=== PATIENT | male | born 1955 | race Caucasian/White ===

== ENCOUNTER → 2016-07-25 | Outpatient (CLI) | payer OTHER | LOC: MW.CHUR 13:11 | PROVIDERS: ATTEND Urology | DX: N50.819 Testicular pain, unspecified (principal) | CPT/HCPCS: 36415; 81001; 84153 ==

== ENCOUNTER 2016-08-06 06:18 | Day surgery (SDC) | payer OTHER ==
[~2016-08-06 06:18] MED LIST: Lactated Ringers 1,000 ML IV SCH; ceFAZolin 1 GM in Premix Bag 1 BAG IV ONE
[2016-08-06] MEDS ORDERED: Bupivacaine 0.5% 10 ML SDV ONE (07:07)
--- NOTE | 2016-08-06 07:21 | PCM.PREANE ---
Preanesthetic Assessment - Anesthesia/Transfusion/Family Hx Anesthesia History: Prior Anesthesia Without Reaction (sedation for endoscopy, no other surgeries or anesthetics) Other Type of Anesthesia Reaction Comment: states has only had EGD/colonoscopy in the past Family History of Anesthesia Reaction: No Transfusion History: No Prior Transfusion(s) - Review of Systems General: No Symptoms Pulmonary: No Symptoms Cardiovascular: No Symptoms Gastrointestinal: No symptoms Neurological: No Symptoms Other: Reports: None - Physical Assessment NPO Status Date: 08/05/16 NPO Status Time: 23:00 O2 Sat by Pulse Oximetry: 96 Respiratory Rate: 16 Vital Signs: Last Vital Signs Temp 37.1 C 08/06/16 06:35 Pulse 72 08/06/16 06:35 Resp 16 08/06/16 06:35 BP 142/86 H 08/06/16 06:35 Pulse Ox 96 08/06/16 06:35 Height: 1.75 m Weight: 89.811 kg ASA Class: 2 Mental Status: Alert & Oriented x3 Airway Class: Mallampati = 2 Dentition: Reports: Edentulous ROM/Head Extension: Full Lungs: Clear to auscultation, Normal respiratory effort Cardiovascular: Murmurs (2-3/6 systolic murmur without radiation) - Allergies Allergies/Adverse Reactions: Allergies Allergy/AdvReac Type Severity Reaction Status Date / Time No Known Allergies Allergy Verified 08/01/16 08:02 - Anesthesia Plan Pre-Op Medication Ordered: None - Acknowledgements Anesthesia Type Planned: General Anesthesia Pt an Appropriate Candidate for the Planned Anesthesia: Yes Alternatives and Risks of Anesthesia Discussed w Pt/Guardian: Yes Pt/Guardian Understands and Agrees with Anesthesia Plan: Yes Additional Comments: problem list, htn, systolic murmur, walks 2-3 miles/day and rides bike 5 miles/ day without angina or dyspnea. PreAnesthesia Questionnaire Cardiovascular History: Reports: Heart Murmur, Hypertension Musculoskeletal History: Reports: Fracture - Past Surgical History Head Surgeries/Procedures: Reports: None Other Cardiovascular Surgeries/Procedures: states has had angiogram in the past - SUBSTANCE USE Smoking Status *Q: Current Every Day Smoker Tobacco Use Within Last Twelve Months: Cigarettes Days Per Week of Alcohol Use: 1 Recreational Drug Use History: No - HOME MEDS Home Medications: Home Meds amLODIPine Besylate [Amlodipine Besylate] 10 mg PO PCLUNCH 08/01/16 [History] - CURRENT (IN HOUSE) MEDS Current Meds: Current Medications Lactated Ringer's (Ringers, Lactated) 1,000 mls @ 100 mls/hr IV ASD[facility]RECTED [facility] Last Admin: 08/06/16 07:13 Dose: 100 mls/hr Discontinued Medications Bupivacaine HCl (Sensorcaine-Mpf 0.5%) Confirm Administered Dose 20 ml .ROUTE .STK-MED ONE Stop: 08/06/16 07:08 Cefazolin Sodium/Dextrose 1 gm (/ Premix) 50 mls @ 100 mls/hr IV ONCALL ONE Stop: 08/06/16 00:30
[2016-08-06] MEDS ORDERED: Propofol 200 MG/20 ML SDV ONE (07:25)
[2016-08-06] MEDS ORDERED: Lidocaine 2% 5 ML SDV ONE (07:25)
[2016-08-06] MEDS ORDERED: fentaNYL 100 MCG/2 ML SDV ONE ×2 (07:25→07:26)
[2016-08-06] MEDS ORDERED: Midazolam 1 MG/ML 2 ML SDV ONE (07:25)
[2016-08-06] MEDS ORDERED: ePHEDrine 50 MG/ML SDV ONE (08:20)
[2016-08-06] MEDS ORDERED: fentaNYL 100 MCG/2 ML SDV IVPUSH PRN (08:28)
[2016-08-06] MEDS ORDERED: Acetaminophen/HYDROcodone 325-5 MG Tab PO PRN (09:58)
--- NOTE | 2016-08-06 09:58 | PCM.POSTAN ---
POST ANESTHESIA ASSESSMENT - MENTAL STATUS Mental Status: alert, oriented - RESPIRATORY Respiratory Status: respiratory rate WNL, airway patent, O2 saturation stable - CARDIOVASCULAR CV Status: pulse rate WNL, blood pressure stable - GASTROINTESTINAL GI Status: no symptoms - POST OP HYDRATION Hydration Status: adequate & stable
--- NOTE | 2016-08-06 11:25 | PCM48HPAN ---
Post Anesthesia Note - EVALUATION WITHIN 48HRS OF ANESTHETIC Vital Signs in Normal Range: Yes Patient Participated in Evaluation: Yes Respiratory Function Stable: Yes Airway Patent: Yes Cardiovascular Function Stable: Yes Hydration Status Stable: Yes Pain Control Satisfactory: Yes Nausea and Vomiting Control Satisfactory: Yes Mental Status Recovered: Yes
--- NOTE | 2016-08-06 12:07 | OR ---
SURGEON: Johnny Stoll M.D. DATE OF PROCEDURE: 08/06/2016 PREOPERATIVE DIAGNOSIS: Right intratesticular cyst. POSTOPERATIVE DIAGNOSIS: Right intratesticular cyst. OPERATION: Testicular exploration and removal of testicular cyst. DESCRIPTION OF PROCEDURE: The patient was given general anesthesia, placed in supine position. The lower abdomen and genital area were all prepped and draped in sterile drapes. A transverse incision was made in the right scrotal sac. The testicle was delivered to the outside. A scarred area from the medial aspect of the testicle was identified. The testicle was then bivalved, the cyst was identified and removed. The appendix testis was also fulgurated as well. The testicular coverings were closed with a running suture of 3-0 chromic. The rest of the incision was closed using 3-0 chromic. The patient tolerated the procedure well and was moved to recovery room in good condition. GENNY / FELICITAS /[id number]
[2016-08-06 13:31] VITALS: BP 123/72
== END 2016-08-06 11:45 | disposition home or self-care (01) ==
LOC: MW.SDS 06:18
PROVIDERS: ATTEND Urology
DX: N44.2 Benign cyst of testis (principal); I10 Essential (primary) hypertension; F17.210 Nicotine dependence, cigarettes, uncomplicated; Z79.899 Other long term (current) drug therapy
CPT/HCPCS: 54512; 88307; A9270; J2250; J3010; J7120; 00920; J2704

== ENCOUNTER 2019-02-01 08:52 | Day surgery (SDC) | payer OTHER ==
[2019-02-01 09:20] VITALS: BP 157/88; PULSE 82
--- NOTE | 2019-02-01 09:44 | PCM.PREANE ---
Preanesthetic Assessment - Anesthesia/Transfusion/Family Hx Anesthesia History: Prior Anesthesia Without Reaction Other Type of Anesthesia Reaction Comment: states has only had EGD/colonoscopy in the past Family History of Anesthesia Reaction: No Transfusion History: No Prior Transfusion(s) Intubation History: Unknown - Review of Systems General: No Symptoms Pulmonary: No Symptoms Cardiovascular: No Symptoms Gastrointestinal: No Symptoms Neurological: No Symptoms Other: Reports: None - Physical Assessment Vital Signs: Last Vital Signs Temp 36.8 C 02/01/19 09:18 Pulse 82 02/01/19 09:18 Resp 14 02/01/19 09:18 BP 157/88 H 02/01/19 09:18 Pulse Ox 95 02/01/19 09:18 Height: 5 ft 9 in Weight: 87.09 kg ASA Class: 2 Mental Status: Alert & Oriented x3 Airway Class: Mallampati = 2 Dentition: Reports: Edentulous Thyro-Mental Finger Breadths: 3 Mouth Opening Finger Breadths: 3 ROM/Head Extension: Full Lungs: Clear to Auscultation, Normal Respiratory Effort Cardiovascular: Regular Rate, Regular Rhythm - Allergies Allergies/Adverse Reactions: Allergies Allergy/AdvReac Type Severity Reaction Status Date / Time No Known Allergies Allergy Verified 02/01/19 09:25 - Blood Blood Available: No - Anesthesia Plan Pre-Op Medication Ordered: None - Acknowledgements Anesthesia Type Planned: Spinal (general anesthesia back-up plan) Pt an Appropriate Candidate for the Planned Anesthesia: Yes Alternatives and Risks of Anesthesia Discussed w Pt/Guardian: Yes Pt/Guardian Understands and Agrees with Anesthesia Plan: Yes PreAnesthesia Questionnaire HEENT History: Reports: Other (See Below) Other HEENT History: wears glasses Cardiovascular History: Reports: Heart Murmur, Hypertension Respiratory History: Reports: None Gastrointestinal History: Reports: Hepatitis Other Gastrointestinal History: hx hepatitis C with treatment 3 years ago Genitourinary History: Reports: Other (See Below) Musculoskeletal History: Reports: Fracture, Osteoarthritis Other Musculoskeletal History: hx fx thumb Neurological History: Reports: None Psychiatric History: Reports: None Endocrine/Metabolic History: Reports: None Hematologic History: Reports: None Immunologic History: Reports: None Oncologic (Cancer) History: Reports: None Dermatologic History: Reports: None - Past Surgical History Head Surgeries/Procedures: Reports: None HEENT Surgical History: Reports: None Cardiovascular Surgical History: Reports: Other (See Below) Other Cardiovascular Surgeries/Procedures: states has had angiogram in the past ( ? 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 Endocrine Surgical History: Reports: None Neurological Surgical History: Reports: None Musculoskeletal Surgical History: Reports: None Oncologic Surgical History: Reports: None Dermatological Surgical History: Reports: None - SUBSTANCE USE Smoking Status *Q: Current Every Day Smoker (1/2 ppd) Tobacco Use Within Last Twelve Months: Cigarettes Recreational Drug Use History: No - HOME MEDS Home Medications: Home Meds amLODIPine Besylate [Amlodipine Besylate] 10 mg PO DAILY 08/01/16 [History] Fish Oil/[place]-3 Fatty Acids [Fish Oil 1,000 MG] 1,000 mg PO DAILY 01/27/19 [ History] Multivitamin [One Daily Multivitamin] 1 tab PO DAILY 01/27/19 [History]
[2019-02-01] MEDS ORDERED: fentaNYL 100 MCG/2 ML SDV ONE ×2 (10:26→10:59)
[2019-02-01] MEDS ORDERED: Ropivacaine 49.25 ML, Ketorolac 30 MG, EPINEPHrine 0.5 MG, cloNIDine 80 MCG in Sodium C... INJECT ONE (10:30)
[2019-02-01] MEDS ORDERED: Ondansetron 4 MG/2 ML SDV ONE (10:59)
[2019-02-01] MEDS ORDERED: Midazolam 1 MG/ML 2 ML SDV ONE (10:59)
--- NOTE | 2019-02-01 12:25 | PCM.SN ---
- Free Text/Narrative Note: Patient had moderate aortic stenosis on cardiac ECHO 12/26/17 with preserved EF and no wall motion abnormalities. Since this last study is over a year old patient will need another cardiac ECHO to rule out progression in aortic valve stenosis. If there is no progression of valve disease we think that risk from anesthesia is acceptable.
== END 2019-02-01 11:42 | disposition home or self-care (01) ==
LOC: UNDOADMIN 08:52 → MW.MS 08:52 → MW.SDS 08:52 → EDSTATUS 09:45 → UNDODISIN 11:42 → MW.SDS 11:42
PROVIDERS: ATTEND Orthopaedic Surgery
DX: M17.12 Unilateral primary osteoarthritis, left knee (principal); I10 Essential (primary) hypertension; M19.90 Unspecified osteoarthritis, unspecified site; F17.210 Nicotine dependence, cigarettes, uncomplicated; Z53.09 Procedure and treatment not carried out because of other contraindication; Z86.19 Personal history of other infectious and parasitic diseases; Z98.890 Other specified postprocedural states
CPT/HCPCS: J0171; J0735; J1885; J2795; J7030; J2001; J2250; J2405; J3010

== ENCOUNTER 2019-04-28 07:09 | Inpatient (IN) | payer OTHER ==
[~2019-04-28 07:09] MED LIST changes: +Famotidine 20 MG/2 ML SDV IVPUSH SCH; -Lactated Ringers 1,000 ML IV SCH; +Ropivacaine 49.25 ML, Ketorolac 30 MG, EPINEPHrine 0.5 MG, cloNIDine 80 MCG in Sodium C... INJECT SCH; -ceFAZolin 1 GM in Premix Bag 1 BAG IV ONE
[2019-04-28] MEDS ORDERED: Midazolam 1 MG/ML 2 ML SDV ONE ×2 (07:24→09:13)
[2019-04-28] MEDS ORDERED: fentaNYL 100 MCG/2 ML SDV ONE (07:24)
[2019-04-28] MEDS ORDERED: Propofol 200 MG/20 ML SDV ONE ×2 (07:24→09:15)
[2019-04-28] MEDS: Lactated Ringers 1,000 ML IV SCH ×2 (07:30→20:55)
[2019-04-28] MEDS ORDERED: Phenylephrine/Normal Saline 100 MCG/ML 10 ML Syringe ONE (07:31)
[2019-04-28] MEDS ORDERED: Sodium Chloride 0.9% 20 ML ONE (07:31)
[2019-04-28] MEDS ORDERED: ePHEDrine 50 MG/ML SDV ONE (07:31)
--- NOTE | 2019-04-28 07:38 | PCM.PREANE ---
Preanesthetic Assessment - Anesthesia/Transfusion/Family Hx Anesthesia History: Prior Anesthesia Without Reaction Other Type of Anesthesia Reaction Comment: states has only had EGD/colonoscopy in the past Family History of Anesthesia Reaction: No Transfusion History: No Prior Transfusion(s) Intubation History: Unknown - Review of Systems General: No Symptoms Pulmonary: No Symptoms Cardiovascular: No Symptoms Gastrointestinal: No Symptoms Neurological: No Symptoms Other: Reports: None - Physical Assessment Vital Signs: Last Vital Signs Temp 36.6 C 04/28/19 07:15 Pulse 80 04/28/19 07:15 Resp 18 04/28/19 07:15 BP 157/83 H 04/28/19 07:15 Pulse Ox 95 04/28/19 07:15 Height: 5 ft 9 in Weight: 87.09 kg ASA Class: 3 Mental Status: Alert & Oriented x3 Airway Class: Mallampati = 2 Dentition: Reports: Edentulous Thyro-Mental Finger Breadths: 3 Mouth Opening Finger Breadths: 3 ROM/Head Extension: Full Lungs: Clear to Auscultation, Normal Respiratory Effort, Decreased Breath Sounds (left side) Cardiovascular: Regular Rate, Regular Rhythm, Murmurs (pansystolic precordial murmur strongest over aortic valve) - Allergies Allergies/Adverse Reactions: Allergies Allergy/AdvReac Type Severity Reaction Status Date / Time No Known Allergies Allergy Verified 04/23/19 08:18 - Blood Blood Available: No - Anesthesia Plan Pre-Op Medication Ordered: None - Acknowledgements Anesthesia Type Planned: Spinal Pt an Appropriate Candidate for the Planned Anesthesia: Yes Alternatives and Risks of Anesthesia Discussed w Pt/Guardian: Yes Pt/Guardian Understands and Agrees with Anesthesia Plan: Yes PreAnesthesia Questionnaire HEENT History: Reports: Other (See Below) Other HEENT History: wears glasses Cardiovascular History: Reports: Heart Murmur, Hypertension, Other (See Below) ( mild aortic stenosis on ECHO about 2 weeks ago, he can walk 2 flights of stairs or 2 blocks without problems) Respiratory History: Reports: None Gastrointestinal History: Reports: Hepatitis Other Gastrointestinal History: hx hepatitis C with treatment, states is cleared Genitourinary History: Reports: Other (See Below) Musculoskeletal History: Reports: Fracture, Osteoarthritis Other Musculoskeletal History: hx fx thumb & ribs Neurological History: Reports: None Psychiatric History: Reports: None Endocrine/Metabolic History: Reports: None Hematologic History: Reports: None Immunologic History: Reports: None Oncologic (Cancer) History: Reports: None Dermatologic History: Reports: None - Past Surgical History Head Surgeries/Procedures: Reports: None HEENT Surgical History: Reports: None Cardiovascular Surgical History: Reports: Other (See Below) Other Cardiovascular Surgeries/Procedures: states has had angiogram in the past x1 artery in '10 (per patient), no stents Respiratory Surgical History: Reports: None GI Surgical History: Reports: None Female Surgical History: Reports: None Male Surgical History: Reports: Other (See Below) Other Male Surgeries/Procedures: 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 Endocrine Surgical History: Reports: None Neurological Surgical History: Reports: None Musculoskeletal Surgical History: Reports: None Oncologic Surgical History: Reports: None Dermatological Surgical History: Reports: None - SUBSTANCE USE Smoking Status *Q: Current Every Day Smoker (1/2 ppd) Tobacco Use Within Last Twelve Months: Cigarettes - HOME MEDS Home Medications: Home Meds Multivitamin [Multivitamins] 1 tab PO DAILY 04/23/19 [History] [place]-3/DHA/Epa/Fish Oil [Fish Oil 1,000 mg Softgel] 1,000 mg PO DAILY 04/23/19 [History] amLODIPine Besylate [Amlodipine Besylate] 10 mg PO DAILY 04/23/19 [History] - CURRENT (IN HOUSE) MEDS Current Meds: Current Medications Famotidine (Pepcid) 40 mg IVPUSH ONARRIVE WILOTN Cefazolin Sodium/Dextrose 2 gm (/ Premix) 50 mls @ 100 mls/hr IV ONCALL [facility] Ropivacaine 49.25 ml/Ketorolac Tromethamine 30 mg/Epinephrine HCl 0.5 mg/ Clonidine HCl 80 mcg/ Sodium Chloride 75 mls @ 50 mls/sec INJECT ASDIRECTED [facility] Lactated Ringer's (Ringers, Lactated) 1,000 mls @ 100 mls/hr IV ASDIRECTED [facility] Discontinued Medications Fentanyl (Sublimaze) Confirm Administered Dose 100 mcg .ROUTE .STK-MED ONE Stop: 04/28/19 07:25 Midazolam HCl (Versed 1 Mg/Ml) Confirm Administered Dose 2 mg .ROUTE .STK-MED ONE Stop: 04/28/19 07:25 Propofol (Diprivan 20 Ml) Confirm Administered Dose 200 mg .ROUTE .STK-MED ONE Stop: 04/28/19 07:25 Tranexamic Acid (Cyklokapron) 1,000 mg TOP ASDIRECTED ONE Stop: 04/28/19 06:01
[2019-04-28] MEDS ORDERED: ceFAZolin/Dextrose,Iso-Osmotic 2 GM/50 ML Duplex Bag IV ONE (07:40)
[2019-04-28] MEDS ORDERED: Atropine 0.1 MG/ML 10 ML Syringe IVPUSH PRN ×2 (07:45)
[2019-04-28] MEDS ORDERED: 50% Dextrose in Water 50 ML Syringe IVPUSH PRN (07:45)
[2019-04-28] MEDS ORDERED: EPINEPHrine 1:10,000 1 MG/10 ML Syringe IVPUSH PRN (07:45)
[2019-04-28] MEDS ORDERED: Albuterol 0.083% 2.5 MG/3 ML Neb Soln NEB PRN (07:45)
[2019-04-28] MEDS ORDERED: Naloxone 0.4 MG/ML Syringe IVPUSH PRN (07:45)
[2019-04-28] MEDS ORDERED: Bisacodyl 10 MG Supp RECTAL PRN (07:47)
[2019-04-28] MEDS ORDERED: diphenhydrAMINE 25 MG Cap PO PRN (07:47)
[2019-04-28] MEDS ORDERED: Docusate Sodium 100 MG Cap PO PRN (07:47)
[2019-04-28] MEDS ORDERED: Acetaminophen/oxyCODONE 325-10 MG Tab PO PRN (07:47)
[2019-04-28] MEDS ORDERED: Aluminum Hydroxide/Magnesium Hydroxide/Simethicone Susp 30 ML Cup PO PRN (07:47)
[2019-04-28] MEDS ORDERED: Sodium Chloride 0.9% 2.5 ML Syringe FLUSH PRN (07:47)
[2019-04-28] MEDS ORDERED: traMADol 50 MG Tab PO PRN (07:47)
[2019-04-28] MEDS ORDERED: Ondansetron 4 MG/2 ML SDV IVPUSH PRN (07:47)
[2019-04-28] MEDS ORDERED: Sodium Chloride 0.9% 10 ML Syringe FLUSH PRN (07:47)
[2019-04-28] MEDS ORDERED: Ketorolac 15 MG/ML SDV IVPUSH SCH (08:00)
[2019-04-28] MEDS ORDERED: ceFAZolin 2 GM in Premix Bag 1 BAG IV SCH (08:00)
[2019-04-28] MEDS ORDERED: Ketorolac 30 MG/ML SDV IVPUSH SCH (08:00)
[2019-04-28] MEDS: fentaNYL 100 MCG/2 ML SDV IVPUSH PRN ×3 (10:24→10:45)
[2019-04-28] MEDS ORDERED: HYDROmorphone 1 MG/ML Syringe IVPUSH ONE (10:51)
--- NOTE | 2019-04-28 11:40 | PCM.POSTAN ---
POST ANESTHESIA ASSESSMENT - MENTAL STATUS Mental Status: Alert, Oriented - VITAL SIGNS Vital Signs: Last Vital Signs Temp 36.1 C 04/28/19 11:25 Pulse 84 04/28/19 11:25 Resp 16 04/28/19 11:25 BP 155/87 H 04/28/19 11:25 Pulse Ox 95 04/28/19 11:25 - RESPIRATORY Respiratory Status: Respiratory Rate WNL, Airway Patent, O2 Saturation Stable - CARDIOVASCULAR CV Status: Pulse Rate WNL, Blood Pressure Stable - GASTROINTESTINAL GI Status: No Symptoms - PAIN Pain Score: 4 - POST OP HYDRATION Hydration Status: Adequate & Stable - OBSERVATIONS Free Text/Narrative:: No anesthesia problems.
--- NOTE | 2019-04-28 13:08 | OR ---
SURGEON: Figueroa Dixon DATE OF PROCEDURE: 04/28/2019 PREOPERATIVE DIAGNOSIS: Left knee primary osteoarthritis. POSTOPERATIVE DIAGNOSIS: Left knee primary osteoarthritis. PROCEDURE: Left knee total knee arthroplasty. PRIMARY SURGEON: Figueroa Dixon DO. HAT CUTTER: DEMETRIO Kent. ROLE OF HAT CUTTER: Nurse practitioner, DEMETRIO Kent, played an essential role in assisting in this case, helping to position the patient, retract structures as needed, as well as suturing and cutting sutures as indicated. Her presence improved patient's safety and decreased operative time. ANESTHESIA: Spinal plus conscious sedation. FLUID: Lactated Ringer's solution. ESTIMATED BLOOD LOSS: 100 mL. COMPLICATIONS: None. SPECIMEN: None. DISCHARGE DISPOSITION: Stable to PACU. INSTRUMENTATIONS: DePuy Attune size 7 femur; size 7 tibia; size 7, 5 mm polyethylene tibial insert; and 38 mm polyethylene patella. HISTORY AND INDICATIONS FOR THE PROCEDURE: The patient was seen preoperatively in the clinic. Preoperative imaging confirmed the above-mentioned diagnosis. Risks and goals of the procedure were explained to the patient. Informed consent was obtained. DETAILS OF PROCEDURE: The patient was seen preoperatively by myself and the Anesthesia staff in the preop holding area where the operative site was marked. He was brought to the operative suite by the Anesthesia staff where spinal and conscious sedation was administered. A well-padded tourniquet was placed onto his left thigh. A Arrieta catheter was placed sterilely. The left lower extremity was then prepped and draped in a sterile manner. Time-out was called identifying the correct patient, the correct procedure, the correct site, and that antibiotics had been given within appropriate period of time. A midline incision was made three fingerbreadths proximal to the patella down to the level of the tibial tubercle and then a medial parapatellar arthrotomy was then made. A full synovectomy was performed. The medial-proximal tibia was visualized using Bovie electrocautery, and Bovie electrocautery was used for hemostasis during the procedure. The patella was then everted and the knee flexed. I then removed some soft tissue around the patella and then made two perpendicular saw cuts and then brought it back into extension. This measured a 38. I drilled three lugs for the trial and then placed the trial patella [address]. We then flexed the knee again and then used sharp Homans on both sides to protect the collateral ligaments and then used a reamer to ream the distal femur. I then used intramedullary distal femoral guide at 9 mm distal cut, 5-degree valgus, pinned that in place, removed the intramedullary portion of the guide and then sawed the distal femur off. We then removed that guide and then placed a posterior condylar guide which measured size 7. I pinned the two pins in place for that guide and then removed the guide and then placed chamfer block and protected the collateral ligaments with sharp Homans and then made my anterior, posterior, and chamfer cuts. I then removed the guide and then removed the bone cuts that I had made. We then used the extramedullary tibial guide in line with the tibial tubercle and second metatarsal with a 2 mm cut. Pinned that in place and then made my cut protecting the collateral ligaments with Homans and then anteriorizing the tibia with a blunt Hohmann. After we removed our bone fragments, I then made my sulcus rasping on the femur. I then inserted a laminar poultry farm manager and removed the posterior portion of the medial and lateral menisci as well as any posterior osteophytes with the curved osteotome. I then anteriorized the tibia again and protected the collaterals with sharp Homans and then placed my 7 tibial base plate. I then placed the tower and then reamed and then tamped. I then placed my femur on and then placed a size 7, 5 mm polyethylene insert. This provided good stability and was stable throughout range of motion. We then removed all our components, copiously irrigated with saline, and then cemented all of our components in place. After that had dried, we then removed any extra cement and then placed my final polyethylene insert. My assist then closed the parapatellar arthrotomy with two #5 Ethibond [id number] sutures at the superior and inferior portion of the patella and then closed the arthrotomy in watertight manner with #1 Stratafix followed by 2-0 Stratafix subcutaneous closure, #2, and then followed by skin oleksandr, Betadine-soaked Adaptic, and a sterile dressing and Michi wrap. The patient was allowed to awaken from general anesthesia and taken to the PACU in stable condition. Please note that the tourniquet was let down at 42 minutes during cementing. [id number] / MODL /[id number]
--- NOTE | 2019-04-28 13:52 | CR ---
Left knee: AP and lateral views left knee were obtained. Comparison: Prior left knee study of 12/28/18. Knee prosthesis is noted. Knee prosthesis has been recently placed. Skin oleksandr are seen as well as soft tissue air. Underlying bony structures are intact. Impression: 1. Satisfactory radiographic appearance of recently placed left knee prosthesis. Diagnostic code #2 Study was dictated in [place] Standard Time
[2019-04-28] MEDS: Polyethylene Glycol 3350 Powder 17 GM Packet PO SCH (14:53)
[2019-04-28] MEDS: amLODIPine 5 MG Tab PO SCH (14:54)
[2019-04-28] MEDS: Famotidine 20 MG Tab PO SCH (14:54)
[2019-04-28] MEDS: Acetaminophen/oxyCODONE 325-5 MG Tab PO PRN (15:01)
[2019-04-28] MEDS: ceFAZolin 2 GM in Premix Bag 1 BAG IV SCH ×2 (15:01→22:21)
[2019-04-28] MEDS: Ketorolac 30 MG/ML SDV IVPUSH SCH ×2 (16:33→22:12)
[2019-04-29] MEDS: Acetaminophen/oxyCODONE 325-5 MG Tab PO PRN ×2 (00:44→06:21)
[2019-04-29] MEDS: Ketorolac 30 MG/ML SDV IVPUSH SCH (04:22)
[2019-04-29 06:29] LABS: BLOOD UREA NITROGEN,BUN 14 mg/dL (7.0-18.0); CARBON DIOXIDE,CO2 29.9 mmol/L (21.0-32.0); CHLORIDE,CL 105 mmol/L (98-107); GLUCOSE RANDOM 89 mg/dL (74-106); POTASSIUM,K 3.8 mmol/L (3.5-5.1); SODIUM,NA 142 mmol/L (136-148)
--- NOTE | 2019-04-29 07:26 | PCM48HPAN ---
Post Anesthesia Note - EVALUATION WITHIN 48HRS OF ANESTHETIC Vital Signs in Normal Range: Yes Patient Participated in Evaluation: Yes Respiratory Function Stable: Yes Airway Patent: Yes Cardiovascular Function Stable: Yes Hydration Status Stable: Yes Pain Control Satisfactory: Yes Nausea and Vomiting Control Satisfactory: Yes Mental Status Recovered: Yes Vital Signs: Last Vital Signs Temp 36.8 C 04/29/19 04:27 Pulse 68 04/29/19 04:27 Resp 17 04/29/19 04:27 BP 135/79 04/29/19 04:27 Pulse Ox 94 L 04/29/19 04:27 - COMMENTS/OBSERVATIONS Free Text/Narrative:: Doing well. No problems noted post.
[2019-04-29 08:04] VITALS: PULSE 73
[2019-04-29] MEDS ORDERED: Aspirin 325 MG Tab PO SCH (09:00)
[2019-04-29] MEDS ORDERED: Celecoxib 100 MG Cap PO SCH (09:00)
[2019-04-29] MEDS: Famotidine 20 MG Tab PO SCH (09:08)
[2019-04-29] MEDS: Polyethylene Glycol 3350 Powder 17 GM Packet PO SCH (09:08)
[2019-04-29] MEDS: amLODIPine 5 MG Tab PO SCH (09:09)
[2019-04-29 09:11] VITALS: BP 151/79
[2019-04-29] MEDS ORDERED: ceFAZolin 2 GM in Premix Bag 1 BAG IV SCH (14:00)
--- NOTE | 2019-04-29 19:53 | PCM.SURGPN ---
- General Info Date of Service: 04/29/19 (0800) Date of Surgery/Procedure: 04/28/19 POD#: 1 Post-Op Diagnosis: s/p LEFT TKA Admission Diagnosis/Problem: Arthritis of knee Functional Status: Reports: Pain Controlled, Tolerating Diet (waiting to eat breakfast), Ambulating (ambulated in room with staff and walker), Urinating - Review of Systems General: Reports: No Symptoms. Denies: Fever Pulmonary: Reports: No Symptoms. Denies: Shortness of Breath Cardiovascular: Reports: No Symptoms. Denies: Chest Pain Gastrointestinal: Denies: Nausea, Vomiting Musculoskeletal: Reports: Other (post-op knee pain) Psychiatric: Reports: No Symptoms - Patient Data Vitals - Most Recent: Last Vital Signs Temp 36.7 C 04/29/19 07:48 Pulse 73 04/29/19 07:48 Resp 17 04/29/19 07:48 BP 151/79 H 04/29/19 09:09 Pulse Ox 96 04/29/19 07:48 Weight - Most Recent: 87.09 kg I&O - Last 24 Hours: Intake & Output 04/29/19 04/29/19 04/29/19 06:59 14:59 22:59 Intake Total 1372 1000 Output Total 800 Balance 572 1000 Lab Results Last 24 Hrs: Laboratory Results - last 24 hr 04/29/19 04/29/19 Range/Units 05:44 05:44 Hgb 13.7 (13.0-17.0) g/dL Hct 39.1 (38.0-50.0) % Sodium 142 (136-148) mmol/L Potassium 3.8 (3.5-5.1) mmol/L Chloride 105 (98-107) mmol/L Carbon Dioxide 29.9 (21.0-32.0) mmol/L BUN 14 (7.0-18.0) mg/dL Creatinine 0.7 L (0.8-1.3) mg/dL Est Cr Clr Drug Dosing 105.21 mL/min Estimated GFR (MDRD) > 60.0 ml/min Glucose 89 (74-106) mg/dL Calcium 8.2 L (8.5-10.1) mg/dL Med Orders - Current: Current Medications Discontinued Medications Al Hydroxide/Mg Hydroxide (Mag-Al Plus) 30 ml PO Q4H PRN PRN Reason: Indigestion Albuterol (Proventil Neb Soln) 2.5 mg NEB ONETIME PRN PRN Reason: Wheezing Amlodipine Besylate (Norvasc) 10 mg PO DAILY [facility] Last Admin: 04/29/19 09:09 Dose: 10 mg Aspirin (Aspirin) 325 mg PO DAILY [facility] Last Admin: 04/29/19 09:08 Dose: 325 mg Atropine Sulfate (Atropine 0.1 Mg/Ml) 0.5 mg IVPUSH ASDIRECTED PRN PRN Reason: Hypo-perfusion Stop: 04/28/19 07:45 Atropine Sulfate (Atropine 0.1 Mg/Ml) 1 mg IVPUSH ASDIRECTED PRN PRN Reason: Hypo-Perfusion Bisacodyl (Dulcolax) 10 mg RECTAL DAILY PRN PRN Reason: Constipation Cefazolin Sodium/Dextrose (Ancef) Confirm Administered Dose 2 gm IV .STK-MED ONE Stop: 04/28/19 07:41 Celecoxib (Celebrex) 200 mg PO BID [facility] Last Admin: 04/29/19 09:08 Dose: 200 mg Dextrose/Water (Dextrose 50% In Water) 50 ml IVPUSH ASDIRECTED PRN PRN Reason: Hypoglycemia Diphenhydramine HCl (Benadryl) 25 - 50 mg PO Q6H PRN PRN Reason: Itching Docusate Sodium (Colace) 100 mg PO BID PRN PRN Reason: Constipation Ephedrine Sulfate (Ephedrine Sulfate) Confirm Administered Dose 50 mg .ROUTE .STK-MED ONE Stop: 04/28/19 07:32 Epinephrine HCl (Epinephrine 1:10,000) 1 mg IVPUSH ASDIRECTED PRN PRN Reason: ACLS Guidelines Famotidine (Pepcid) 40 mg IVPUSH ONARRIVE [facility] Last Admin: 04/28/19 07:42 Dose: 40 mg Famotidine (Pepcid) 40 mg PO DAILY [facility] Last Admin: 04/29/19 09:08 Dose: 40 mg Fentanyl (Sublimaze) Confirm Administered Dose 100 mcg .ROUTE .STK-MED ONE Stop: 04/28/19 07:25 Fentanyl (Sublimaze) 50 mcg IVPUSH Q5M PRN PRN Reason: Pain Last Admin: 04/28/19 10:45 Dose: 50 mcg Hydromorphone HCl (Dilaudid) 1 mg IVPUSH ONETIME ONE Stop: 04/28/19 10:52 Last Admin: 04/28/19 14:54 Dose: Not Given Cefazolin Sodium/Dextrose 2 gm (/ Premix) 50 mls @ 100 mls/hr IV ONCALL [facility] Ropivacaine 49.25 ml/Ketorolac Tromethamine 30 mg/Epinephrine HCl 0.5 mg/ Clonidine HCl 80 mcg/ Sodium Chloride 75 mls @ 50 mls/sec INJECT ASDIRECTED [facility] Lactated Ringer's (Ringers, Lactated) 1,000 mls @ 100 mls/hr IV ASDIRECTED [facility] Last Admin: 04/28/19 20:55 Dose: 100 mls/hr Sodium Chloride (Normal Saline) Confirm Administered Dose 20 mls @ as directed .ROUTE .STK-MED ONE Stop: 04/28/19 07:32 Acetaminophen (Ofirmev) Confirm Administered Dose 100 mls @ as directed .ROUTE .STK-MED ONE Stop: 04/28/19 07:38 Cefazolin Sodium/Dextrose 2 gm (/ Premix) 50 mls @ 100 mls/hr IV Q8H [facility] Stop: 04/28/19 22:29 Last Admin: 04/28/19 22:21 Dose: 100 mls/hr Cefazolin Sodium/Dextrose 2 gm (/ Premix) 50 mls @ 100 mls/hr IV Q8HR [facility] Stop: 04/30/19 06:29 Ketorolac Tromethamine (Toradol) 30 mg IVPUSH Q6H [facility] Stop: 04/29/19 05:00 Last Admin: 04/28/19 10:42 Dose: 30 mg Ketorolac Tromethamine (Toradol) 30 mg IVPUSH Q6H [facility] Stop: 04/29/19 05:00 Last Admin: 04/29/19 04:22 Dose: 30 mg Midazolam HCl (Versed 1 Mg/Ml) Confirm Administered Dose 2 mg .ROUTE .STK-MED ONE Stop: 04/28/19 07:25 Midazolam HCl (Versed 1 Mg/Ml) Confirm Administered Dose 2 mg .ROUTE .STK-MED ONE Stop: 04/28/19 09:14 Naloxone HCl (Narcan) 0.1 mg IVPUSH ASDIRECTED PRN PRN Reason: Respiratory Depression Ondansetron HCl (Zofran) 4 mg IVPUSH Q6H PRN PRN Reason: Nausea/Vomiting Oxycodone/Acetaminophen (Percocet 325-5 Mg) 1 - 2 tab PO Q4H PRN PRN Reason: Pain Last Admin: 04/29/19 06:21 Dose: 2 tab Oxycodone/Acetaminophen (Percocet 325-10 Mg) 1 - 2 tab PO Q4H PRN PRN Reason: Pain Last Admin: 04/29/19 10:46 Dose: 1 tab Phenylephrine HCl (Phenylephrine In Ns 100 Mcg/Ml) Confirm Administered Dose 1 mg .ROUTE .STK-MED ONE Stop: 04/28/19 07:32 Polyethylene Glycol (Miralax) 17 gm PO DAILY [facility] Last Admin: 04/29/19 09:08 Dose: 17 gm Propofol (Diprivan 20 Ml) Confirm Administered Dose 200 mg .ROUTE .STK-MED ONE Stop: 04/28/19 07:25 Propofol (Diprivan 20 Ml) Confirm Administered Dose 200 mg .ROUTE .STK-MED ONE Stop: 04/28/19 09:16 Sodium Chloride (Saline Flush) 10 ml FLUSH ASDIRECTED PRN PRN Reason: Keep Vein Open Sodium Chloride (Saline Flush) 2.5 ml FLUSH ASDIRECTED PRN PRN Reason: Keep Vein Open Tramadol HCl (Ultram) 50 - 100 mg PO Q6H PRN PRN Reason: Pain Last Admin: 04/28/19 12:08 Dose: 100 mg Tranexamic Acid (Cyklokapron) 1,000 mg TOP ASDIRECTED ONE Stop: 04/28/19 06:01 Last Admin: 04/28/19 14:53 Dose: Not Given Tranexamic Acid (Cyklokapron) Confirm Administered Dose 1,000 mg .ROUTE .STK- MED ONE Stop: 04/28/19 08:00 - Exam Wound/Incisions: Dressing Dry and Intact, No Drainage. No: Erythema Quality Assessment: DVT Prophylaxis (SCDs RLE, ambulation) General: Alert, Oriented, Cooperative, No Acute Distress HEENT: Pupils Equal Lungs: Normal Respiratory Effort Cardiovascular: Regular Rate Extremities: No Pedal Edema, Normal Capillary Refill, Other (Incision CDI with oleksandr. No active drainage. No surrounding erythema. Sensation intact to LE. PP2+ No pitting edema.) Skin: Warm, Dry Neurological: Normal Speech, Normal Tone Psy/Mental Status: Alert, Normal Affect, Normal Mood Sepsis Event Note - Evaluation Sepsis Screening Result: No Definite Risk - Focused Exam Vital Signs: Vital Signs Temp Pulse Resp BP BP Pulse Ox Pulse Ox 04/29/19 09:09 151/79 H 04/29/19 07:48 36.7 C 73 17 146/76 H 96 04/29/19 07:45 96 Date Exam was Performed: 04/29/19 Time Exam was Performed: 19:43 - Problem List Review Problem List Initiated/Reviewed/Updated: Yes - My Orders Last 24 Hours: Active Orders 24 hr Category Date Time Status Ready for Discharge [RC] PER UNIT ROUTINE Care 04/29/19 10:16 Active Urinary Catheter Removal [RC] ASDIRECTED Care 04/29/19 07:48 Active Convert IV to Saline Lock [OM.PC] PRN Oth 04/29/19 08:00 Ordered - Assessment Assessment (Free Text/Narrative):: s/p LEFT TKA - Plan Plan (Free Text/Narrative):: This morning, Dane is doing well, and inquires about when he can go home. VSS/afebrile. Hg stable at 13.7 tolerating food/fluids without N/V. Sitting at the side of his bed, with [facility] care ice pad on. Surgical dressing CDI. Removed with no drainage on surgical dressing. No surrounding erythema to knee. Pain manageable with oral narcotics, tolerating without N/V. Ax coverage : Ancef 2 gm x 2 additional doses post-operatively. DVT prophylaxis : SCDs, ASA 325mg, and early ambulation. He will receive PT this morning, and once comfortable with distance ambulation and maneuvering steps, he feels ready for discharge, and I concur. Rx for FWW written. Discussed Rx that will be [facility] to [facility] when discharged.
--- NOTE | 2019-04-29 20:05 | PCM.DCSUM1 ---
Discharge Summary - Hospital Course Free Text/Narrative:: document # [id number] - Discharge Data Discharge Date: 04/29/19 Discharge Disposition: Home, Self-Care 01 Condition: Good - Referral to Home Health Primary Care Physician: Joel Busby NP - Patient Summary/Data Consults: Consultations 04/28/19 07:48 OT Evaluation and Treatment [CONS] Routine PT Evaluation and Treatment [CONS] Routine - Patient Instructions Diet: Usual Diet as Tolerated Activity: Apply Ice, Elevate Extremity Activity, Other: Ambulate with assistance of walker Driving: Do Not Drive Showering/Bathing: May Shower Notify Provider of: Fever, Increased Pain, Swelling and Redness, Drainage, Nausea and/or Vomiting - Discharge Plan Prescriptions/Med Rec: Acetaminophen/oxyCODONE [Percocet 325-5 MG] 1 - 2 tab PO Q6H PRN #40 tablet PRN Reason: Pain Aspirin 325 mg PO DAILY #30 tablet Celecoxib [CeleBREX] 200 mg PO DAILY #30 cap polyethylene glycoL 3350 [MiraLAX] 17 gm PO DAILY PRN #1 bottle PRN Reason: Constipation Home Medications: Home Meds Multivitamin [Multivitamins] 1 tab PO DAILY 04/23/19 [History] [place]-3/DHA/Epa/Fish Oil [Fish Oil 1,000 mg Softgel] 1,000 mg PO DAILY 04/23/19 [History] amLODIPine Besylate [Amlodipine Besylate] 10 mg PO DAILY 04/23/19 [History] Acetaminophen/oxyCODONE [Percocet 325-5 MG] 1 - 2 tab PO Q6H PRN #40 tablet [Rx] Aspirin 325 mg PO DAILY #30 tablet 04/29/19 [Rx] Celecoxib [CeleBREX] 200 mg PO DAILY #30 cap 04/29/19 [Rx] polyethylene glycoL 3350 [MiraLAX] 17 gm PO DAILY PRN #1 bottle 04/29/19 [Rx] Patient Handouts: Aspirin, ASA chewable tablets, Acetaminophen; Oxycodone capsules, Celecoxib capsules, Total Knee Replacement, Care After, [id number], Polyethylene Glycol powder Referrals: Mercy Solo NP [Nurse Practitioner] - 05/20/19 9:40 am - Discharge Summary/Plan Comment DC Time >30 min.: No - Patient Data Vitals - Most Recent: Last Vital Signs Temp 36.7 C 04/29/19 07:48 Pulse 73 04/29/19 07:48 Resp 17 04/29/19 07:48 BP 151/79 H 04/29/19 09:09 Pulse Ox 96 04/29/19 07:48 Weight - Most Recent: 87.09 kg I&O - Last 24 hours: Intake & Output 04/29/19 04/29/19 04/29/19 06:59 14:59 22:59 Intake Total 1372 1000 Output Total 800 Balance 572 1000 Lab Results - Last 24 hrs: Laboratory Results - last 24 hr 04/29/19 04/29/19 Range/Units 05:44 05:44 Hgb 13.7 (13.0-17.0) g/dL Hct 39.1 (38.0-50.0) % Sodium 142 (136-148) mmol/L Potassium 3.8 (3.5-5.1) mmol/L Chloride 105 (98-107) mmol/L Carbon Dioxide 29.9 (21.0-32.0) mmol/L BUN 14 (7.0-18.0) mg/dL Creatinine 0.7 L (0.8-1.3) mg/dL Est Cr Clr Drug Dosing 105.21 mL/min Estimated GFR (MDRD) > 60.0 ml/min Glucose 89 (74-106) mg/dL Calcium 8.2 L (8.5-10.1) mg/dL Med Orders - Current: Current Medications Discontinued Medications Al Hydroxide/Mg Hydroxide (Mag-Al Plus) 30 ml PO Q4H PRN PRN Reason: Indigestion Albuterol (Proventil Neb Soln) 2.5 mg NEB ONETIME PRN PRN Reason: Wheezing Amlodipine Besylate (Norvasc) 10 mg PO DAILY [facility] Last Admin: 04/29/19 09:09 Dose: 10 mg Aspirin (Aspirin) 325 mg PO DAILY [facility] Last Admin: 04/29/19 09:08 Dose: 325 mg Atropine Sulfate (Atropine 0.1 Mg/Ml) 0.5 mg IVPUSH ASDIRECTED PRN PRN Reason: Hypo-perfusion Stop: 04/28/19 07:45 Atropine Sulfate (Atropine 0.1 Mg/Ml) 1 mg IVPUSH ASDIRECTED PRN PRN Reason: Hypo-Perfusion Bisacodyl (Dulcolax) 10 mg RECTAL DAILY PRN PRN Reason: Constipation Cefazolin Sodium/Dextrose (Ancef) Confirm Administered Dose 2 gm IV .STK-MED ONE Stop: 04/28/19 07:41 Celecoxib (Celebrex) 200 mg PO BID [facility] Last Admin: 04/29/19 09:08 Dose: 200 mg Dextrose/Water (Dextrose 50% In Water) 50 ml IVPUSH ASDIRECTED PRN PRN Reason: Hypoglycemia Diphenhydramine HCl (Benadryl) 25 - 50 mg PO Q6H PRN PRN Reason: Itching Docusate Sodium (Colace) 100 mg PO BID PRN PRN Reason: Constipation Ephedrine Sulfate (Ephedrine Sulfate) Confirm Administered Dose 50 mg .ROUTE .[employer]-Tigermed ONE Stop: 04/28/19 07:32 Epinephrine HCl (Epinephrine 1:10,000) 1 mg IVPUSH ASDIRECTED PRN PRN Reason: ACLS Guidelines Famotidine (Pepcid) 40 mg IVPUSH ONARRIVE [facility] Last Admin: 04/28/19 07:42 Dose: 40 mg Famotidine (Pepcid) 40 mg PO DAILY [facility] Last Admin: 04/29/19 09:08 Dose: 40 mg Fentanyl (Sublimaze) Confirm Administered Dose 100 mcg .ROUTE .ABT [employer] ONE Stop: 04/28/19 07:25 Fentanyl (Sublimaze) 50 mcg IVPUSH Q5M PRN PRN Reason: Pain Last Admin: 04/28/19 10:45 Dose: 50 mcg Hydromorphone HCl (Dilaudid) 1 mg IVPUSH ONETIME ONE Stop: 04/28/19 10:52 Last Admin: 04/28/19 14:54 Dose: Not Given Cefazolin Sodium/Dextrose 2 gm (/ Premix) 50 mls @ 100 mls/hr IV ONCALL [facility] Ropivacaine 49.25 ml/Ketorolac Tromethamine 30 mg/Epinephrine HCl 0.5 mg/ Clonidine HCl 80 mcg/ Sodium Chloride 75 mls @ 50 mls/sec INJECT ASDIRECTED [facility] Lactated Ringer's (Ringers, Lactated) 1,000 mls @ 100 mls/hr IV ASDIRECTED [facility] Last Admin: 04/28/19 20:55 Dose: 100 mls/hr Sodium Chloride (Normal Saline) Confirm Administered Dose 20 mls @ as directed .ROUTE .STK-MED ONE Stop: 04/28/19 07:32 Acetaminophen (Ofirmev) Confirm Administered Dose 100 mls @ as directed .ROUTE .STK-MED ONE Stop: 04/28/19 07:38 Cefazolin Sodium/Dextrose 2 gm (/ Premix) 50 mls @ 100 mls/hr IV Q8H [facility] Stop: 04/28/19 22:29 Last Admin: 04/28/19 22:21 Dose: 100 mls/hr Cefazolin Sodium/Dextrose 2 gm (/ Premix) 50 mls @ 100 mls/hr IV Q8HR [facility] Stop: 04/30/19 06:29 Ketorolac Tromethamine (Toradol) 30 mg IVPUSH Q6H [facility] Stop: 04/29/19 05:00 Last Admin: 04/28/19 10:42 Dose: 30 mg Ketorolac Tromethamine (Toradol) 30 mg IVPUSH Q6H [facility] Stop: 04/29/19 05:00 Last Admin: 04/29/19 04:22 Dose: 30 mg Midazolam HCl (Versed 1 Mg/Ml) Confirm Administered Dose 2 mg .ROUTE .STK-MED ONE Stop: 04/28/19 07:25 Midazolam HCl (Versed 1 Mg/Ml) Confirm Administered Dose 2 mg .ROUTE .STK-MED ONE Stop: 04/28/19 09:14 Naloxone HCl (Narcan) 0.1 mg IVPUSH ASDIRECTED PRN PRN Reason: Respiratory Depression Ondansetron HCl (Zofran) 4 mg IVPUSH Q6H PRN PRN Reason: Nausea/Vomiting Oxycodone/Acetaminophen (Percocet 325-5 Mg) 1 - 2 tab PO Q4H PRN PRN Reason: Pain Last Admin: 04/29/19 06:21 Dose: 2 tab Oxycodone/Acetaminophen (Percocet 325-10 Mg) 1 - 2 tab PO Q4H PRN PRN Reason: Pain Last Admin: 04/29/19 10:46 Dose: 1 tab Phenylephrine HCl (Phenylephrine In Ns 100 Mcg/Ml) Confirm Administered Dose 1 mg .ROUTE .STK-MED ONE Stop: 04/28/19 07:32 Polyethylene Glycol (Miralax) 17 gm PO DAILY [facility] Last Admin: 04/29/19 09:08 Dose: 17 gm Propofol (Diprivan 20 Ml) Confirm Administered Dose 200 mg .ROUTE .STK-MED ONE Stop: 04/28/19 07:25 Propofol (Diprivan 20 Ml) Confirm Administered Dose 200 mg .ROUTE .STK-MED ONE Stop: 04/28/19 09:16 Sodium Chloride (Saline Flush) 10 ml FLUSH ASDIRECTED PRN PRN Reason: Keep Vein Open Sodium Chloride (Saline Flush) 2.5 ml FLUSH ASDIRECTED PRN PRN Reason: Keep Vein Open Tramadol HCl (Ultram) 50 - 100 mg PO Q6H PRN PRN Reason: Pain Last Admin: 04/28/19 12:08 Dose: 100 mg Tranexamic Acid (Cyklokapron) 1,000 mg TOP ASDIRECTED ONE Stop: 04/28/19 06:01 Last Admin: 04/28/19 14:53 Dose: Not Given Tranexamic Acid (Cyklokapron) Confirm Administered Dose 1,000 mg .ROUTE .STK- MED ONE Stop: 04/28/19 08:00
--- NOTE | 2019-04-30 00:24 | DISCH ---
DATE OF DISCHARGE: 04/29/2019 PRIMARY CARE PHYSICIAN: [facility] ADMITTING DIAGNOSIS: Left knee primary osteoarthritis. SURGICAL PROCEDURE: Left knee total knee arthroplasty OTHER MEDICAL DIAGNOSES: 1. Hypertension. 2. Hypercholesterolemia. 3. Chronic obstructive pulmonary disease. DISCHARGE MEDICAL DIAGNOSES: 1. Status post left knee total knee arthroplasty. 2. Hypertension. 3. Hypercholesterolemia. 4. Chronic obstructive pulmonary disease. HISTORY: This 64-year-old male with complaints of left knee pain who failed conservative treatment, underwent left total knee arthroplasty by Dr. Figueroa Dixon on 04/28/2019. No known surgical complications. He was admitted to [facility] for postop care and physical therapy. HOSPITAL COURSE: Postoperatively, Dane did well. Vital signs stable/afebrile. Tolerated oral food and fluids with no nausea, vomiting. Pain was controlled with oral medications. Diligent use of ice per [facility] Care machine. [place] was removed hours postoperatively. Incision assessed postop day 1. This was clean, dry, and intact. Surgical dressing with no additional drainage. Dressing was removed and large Aquacel dressing was applied. Antibiotic coverage: Ancef 2 g preoperatively plus 2 additional doses. DVT prophylaxis: ASA 325 mg, SCDs, early ambulation. Blood work: Hemoglobin stable at 13.7, postop day 1. PT was initiated in the hospital. He was ambulating well with staff and walker. He felt ready to be discharged home postop day 1. DISCHARGE MEDICATIONS: 1. Percocet 5/325 mg, 1 to 2 tabs p.o. q.6 hours p.r.n. 2. Aspirin 325 mg daily. 3. Celebrex 200 mg daily. 4. MiraLAX 17 g daily p.r.n. 5. Amlodipine 10 mg daily. 6. Multivitamin 1 tablet daily. 7. Fish oil daily. DISCHARGE ORDERS: Followup appointment scheduled in 3 weeks for suture removal. Outpatient physical therapy set up at [facility] in the [facility]. Prescription written for a walker upon discharge. The patient was informed to call with any acute concerns or questions. NORBCHE / MODL /[id number] MIRZA
== END 2019-04-29 11:55 | disposition home or self-care (01) | DRG 470 ==
LOC: MW.MS 07:09 → EDSTATUS 10:45
PROVIDERS: ADMIT Orthopaedic Surgery; ATTEND Orthopaedic Surgery
PROC: 0SRD0J9 Replacement of Left Knee Joint with Synthetic Substitute, Cemented, Open Approach (ICD-10-PCS; principal; 2019-04-28)
DX: M17.12 Unilateral primary osteoarthritis, left knee (principal); I10 Essential (primary) hypertension; E78.00 Pure hypercholesterolemia, unspecified; J44.9 Chronic obstructive pulmonary disease, unspecified; F17.210 Nicotine dependence, cigarettes, uncomplicated
CPT/HCPCS: 01402; 36415; 73560-26-LT; 73560-LT; 80048; 82962; 85014; 85018; 86850; 86900; 86901; 97110-GP; 97116-GP; 97162-GP; A9270-GY; C1776; J0131; J0171; J0690; J0735; J1885; J2250; J2370; J2704; J2795; J3010; J3490; J7050; J7120

== ENCOUNTER 2019-08-19 17:27 | Inpatient (IN) | payer OTHER ==
[2019-08-19] MEDS ORDERED: Sodium Chloride 0.9% 10 ML Syringe FLUSH PRN (17:59)
[2019-08-19] MEDS ORDERED: Sodium Chloride 0.9% 2.5 ML Syringe FLUSH PRN (17:59)
[2019-08-19] MEDS ORDERED: Sodium Chloride 0.9% 2,000 ML IV ONE (17:59)
--- NOTE | 2019-08-19 18:20 | EDM.PDOC ---
ED HPI GENERAL MEDICAL PROBLEM - General Chief Complaint: Skin Complaint Stated Complaint: LEFT KNEE POSSIBLE INFECTION Time Seen by Provider: 08/19/19 17:40 Source of Information: Reports: Patient History Limitations: Reports: No Limitations - History of Present Illness INITIAL COMMENTS - FREE TEXT/NARRATIVE: 64-year-old male with history of hypertension presents with left knee irritation and headache. He underwent a left knee replacement in April 2019.by Dr. Figueroa Dixon. 2 days ago he noted irritation to the lateral left knee and started scratching it and noticed that there was pus coming out today. Today he also noted a right temporal throbbing headache that started gradually and progressive worsening, currently rated at 8/10. He took aspirin 162 mg with no relief. Associated with nausea. He denies fever, chills, vomiting, diarrhea, chest pain, shortness of breath, abdominal pain, dysuria. ROS: A 10-point review of systems, other than pertinent positives and negatives as stated per HPI, is otherwise negative PHYSICAL EXAM General: AOx4, GCS = 15, No distress HEENT: dry mucous membrane Neck: supple, no meningismus, no Kernig or Brudzinski Cardiac: S1S2 tachycardia, systolic murmur Respiratory: CTAB, no crackles or rales, no wheezing Abdomen: Soft, nontender, no rebound or guarding, nondistended, no pulsatile mass. Back: nontender Musculoskeletal: NVI distally, left lateral knee mild induration with serosanguineous drainage. No pain with left knee range of motion. Neuro: No focal deficits MEDICAL DECISION MAKING: I reviewed the patients past medical records, lab and radiographic findings. I discussed the case with family members. My differential diagnosis included: Sepsis, cellulitis, septic arthritis. Patient's clinical presentation today is consistent with cellulitis to the left lateral knee, I do not suspect septic arthritis at this time, he had no pain with range of motion and no effusion notable to the left knee. I did consult Dr. Dixon who performed the surgery. He was given IV antibiotics. Dr. Dixon assessed the patient in the ER, he agrees that it looks more like cellulitis. Patient has no complaint of neck pain or neck stiffness, he was able to shake his head left and right and no distress, I do not suspect meningitis warranting a lumbar puncture. headache Pain Score (Numeric/FACES): 7 - Related Data Allergies Allergy/AdvReac Type Severity Reaction Status Date / Time No Known Allergies Allergy Verified 08/19/19 21:28 Home Meds: Home Meds amLODIPine Besylate [Amlodipine Besylate] 10 mg PO DAILY 04/23/19 [History] Aspirin 325 mg PO DAILY #30 tablet 04/29/19 [Rx] Sulfamethoxazole/Trimethoprim [Bactrim Ds Tablet] 1 each PO BID #10 tablet 08/21/19 [Rx] Past Medical History HEENT History: Reports: Other (See Below) Other HEENT History: wears glasses Cardiovascular History: Reports: Heart Murmur, Hypertension, Other (See Below) Respiratory History: Reports: None Gastrointestinal History: Reports: Other (See Below) Other Gastrointestinal History: hx hepatitis C with treatment, states is cleared Genitourinary History: Reports: None Musculoskeletal History: Reports: Other (See Below) Other Musculoskeletal History: hx fx thumb & ribs Neurological History: Reports: None Psychiatric History: Reports: None Endocrine/Metabolic History: Reports: None Hematologic History: Reports: None Immunologic History: Reports: None Oncologic (Cancer) History: Reports: None Dermatologic History: Reports: None - Infectious Disease History Infectious Disease History: Reports: None - Past Surgical History Head Surgeries/Procedures: Reports: None HEENT Surgical History: Reports: None Cardiovascular Surgical History: Reports: Other (See Below) Other Cardiovascular Surgeries/Procedures: states has had angiogram in the past x1 artery in '10 (per patient), no stents Respiratory Surgical History: Reports: None GI Surgical History: Reports: None Male Surgical History: Reports: Other (See Below) Other Male Surgeries/Procedures: testicular surgery Endocrine Surgical History: Reports: None Neurological Surgical History: Reports: None Musculoskeletal Surgical History: Reports: Knee Replacement Oncologic Surgical History: Reports: None Dermatological Surgical History: Reports: None Social & Family History - Family History Family Medical History: Noncontributory - Tobacco Use Smoking Status *Q: Current Every Day Smoker Years of Tobacco use: 50 Packs/Tins Daily: 0.9 - Caffeine Use Caffeine Use: Reports: Coffee, Soda, Tea - Recreational Drug Use Recreational Drug Use: No ED ROS GENERAL - Review of Systems Review Of Systems: See Below (see dictation) ED EXAM, SKIN/RASH Exam: See Below (see dictation) EKG INTERPRETATION EKG Interpretation Comments: 106 bpm, sinus tach, normal QRS interval, no STEMI. EKG and rhythm strip interpreted by me at 0614 Course - Vital Signs Last Recorded V/S: Last Vital Signs Temp 99.1 F 08/21/19 11:42 Pulse 72 08/21/19 11:42 Resp 16 08/21/19 11:42 BP 147/76 H 08/21/19 11:42 Pulse Ox 96 08/21/19 11:42 - Orders/Labs/Meds Labs: Laboratory Tests 08/19/19 08/19/19 08/19/19 Range/Units 17:45 17:45 17:45 WBC 18.30 H (4.0-11.0) K/uL RBC 4.48 L (4.50-5.90) M/uL Hgb 15.7 (13.0-17.0) g/dL Hct 45.7 (38.0-50.0) % MCV 102.0 H (80.0-98.0) fL MCH 35.0 H (27.0-32.0) pg MCHC 34.4 (31.0-37.0) g/dL RDW Std Deviation 53.0 (28.0-62.0) fl RDW Coeff of Padma 14 (11.0-15.0) % Plt Count 232 (150-400) K/uL MPV 10.30 (7.40-12.00) fL Neut % (Auto) 82.5 H (48.0-80.0) % Lymph % (Auto) 8.5 L (16.0-40.0) % Berg[place] % (Auto) 8.7 (0.0-15.0) % Eos % (Auto) 0.1 (0.0-7.0) % Baso % (Auto) 0.2 (0.0-1.5) % Neut # (Auto) 15.1 H (1.4-5.7) K/uL Lymph # (Auto) 1.6 (0.6-2.4) K/uL Bergen # (Auto) 1.6 H (0.0-0.8) K/uL Eos # (Auto) 0.0 (0.0-0.7) K/uL Baso # (Auto) 0.0 (0.0-0.1) K/uL Nucleated RBC % 0.0 /100WBC Nucleated RBCs # 0 K/uL INR 1.03 APTT 30.2 (18.6-31.3) SEC Lactate (0.20-2.00) mmol/L Sodium 137 (136-148) mmol/L Potassium 3.5 (3.5-5.1) mmol/L Chloride 100 (98-107) mmol/L Carbon Dioxide 24.7 (21.0-32.0) mmol/L BUN 13 (7.0-18.0) mg/dL Creatinine 1.0 (0.8-1.3) mg/dL Est Cr Clr Drug Dosing 73.65 mL/min Estimated GFR (MDRD) > 60.0 ml/min Glucose 160 H (74-106) mg/dL Calcium 9.1 (8.5-10.1) mg/dL Total Bilirubin 0.6 (0.2-1.0) mg/dL AST 29 (15-37) IU/L ALT 41 (14-63) IU/L Alkaline Phosphatase 104 (46-116) U/L C-Reactive Protein 6.00 H (0.00-0.90) mg/dL Total Protein 7.7 (6.4-8.2) g/dL Albumin 3.9 (3.4-5.0) g/dL Globulin 3.8 (2.6-4.0) g/dL Albumin/Globulin Ratio 1.0 (0.9-1.6) 08/19/19 Range/Units 17:48 WBC (4.0-11.0) K/uL RBC (4.50-5.90) M/uL Hgb (13.0-17.0) g/dL Hct (38.0-50.0) % MCV (80.0-98.0) fL MCH (27.0-32.0) pg MCHC (31.0-37.0) g/dL RDW Std Deviation (28.0-62.0) fl RDW Coeff of Padma (11.0-15.0) % Plt Count (150-400) K/uL MPV (7.40-12.00) fL Neut % (Auto) (48.0-80.0) % Lymph % (Auto) (16.0-40.0) % Berg[place] % (Auto) (0.0-15.0) % Eos % (Auto) (0.0-7.0) % Baso % (Auto) (0.0-1.5) % Neut # (Auto) (1.4-5.7) K/uL Lymph # (Auto) (0.6-2.4) K/uL Berg[place] # (Auto) (0.0-0.8) K/uL Eos # (Auto) (0.0-0.7) K/uL Baso # (Auto) (0.0-0.1) K/uL Nucleated RBC % /100WBC Nucleated RBCs # K/uL INR APTT (18.6-31.3) SEC Lactate 1.2 (0.20-2.00) mmol/L Sodium (136-148) mmol/L Potassium (3.5-5.1) mmol/L Chloride (98-107) mmol/L Carbon Dioxide (21.0-32.0) mmol/L BUN (7.0-18.0) mg/dL Creatinine (0.8-1.3) mg/dL Est Cr Clr Drug Dosing mL/min Estimated GFR (MDRD) ml/min Glucose (74-106) mg/dL Calcium (8.5-10.1) mg/dL Total Bilirubin (0.2-1.0) mg/dL AST (15-37) IU/L ALT (14-63) IU/L Alkaline Phosphatase (46-116) U/L C-Reactive Protein (0.00-0.90) mg/dL Total Protein (6.4-8.2) g/dL Albumin (3.4-5.0) g/dL Globulin (2.6-4.0) g/dL Albumin/Globulin Ratio (0.9-1.6) Meds: Medications Discontinued Medications Generic Name Dose Route Start Last Admin Trade Name Freq PRN Reason Stop Dose Admin Acetaminophen 1,000 mg 08/19/19 18:57 08/19/19 19:13 Tylenol PO 08/19/19 18:58 Not Given NOW ONE Acetaminophen 1,000 mg 08/19/19 19:13 08/19/19 20:05 Tylenol PO 08/19/19 19:14 Not Given NOW STA Acetaminophen 1,000 mg 08/19/19 19:18 08/19/19 19:18 Tylenol Extra Strength PO 08/19/19 19:19 1,000 mg ONETIME ONE Administration Acetaminophen Confirm 08/19/19 19:17 08/19/19 20:04 Tylenol Extra Strength Administered 08/19/19 19:18 Not Given Dose 500 mg .ROUTE .STK-MED ONE Acetaminophen 650 mg 08/20/19 00:17 08/20/19 07:50 Tylenol PO 650 mg Q6H PRN Administration Pain Acetaminophen/Butalbital/Caffeine 1 tab 08/20/19 10:08 08/20/19 20:19 Fioricet 325-50-40 Mg PO 1 tab Q8H PRN Administration Headache Heparin Sodium (Porcine) 5,000 units 08/19/19 23:15 08/21/19 06:21 Heparin Sodium SUBCUT 5,000 units Q8H [facility] Administration Sodium Chloride 2,000 mls @ 999 mls/hr 08/19/19 17:59 08/19/19 18:13 Normal Saline IV 08/19/19 19:59 999 mls/hr .Bolus ONE Administration Piperacillin Sod/Tazobactam 100 mls @ 200 mls/hr 08/19/19 18:30 08/20/19 00:28 Sod 4.5 gm/ Sodium Chloride IV Not Given Q6H W[facility] Vancomycin HCl 1.25 gm/ Sodium 250 mls @ 167 mls/hr 08/19/19 18:30 08/19/19 19:12 Chloride IV 08/19/19 19:59 167 mls/hr ONETIME ONE Administration Piperacillin Sod/Tazobactam 50 mls @ 100 mls/hr 08/19/19 20:00 08/21/19 09:03 Sod 3.375 gm/ Sodium Chloride IV 100 mls/hr Q6H [facility] Administration Sodium Chloride 1,000 mls @ 125 mls/hr 08/19/19 20:30 08/20/19 19:28 Normal Saline IV 125 mls/hr ASDIRECTED W[facility] Administration Vancomycin HCl 1.5 gm/ Premix 300 mls @ 300 mls/hr 08/20/19 09:00 08/21/19 10:33 IV 300 mls/hr Q12H [facility] Administration Sodium Chloride 10 ml 08/19/19 17:59 08/19/19 18:15 Saline Flush FLUSH 10 ml ASDIRECTED PRN Administration Keep Vein Open Sodium Chloride 2.5 ml 08/19/19 17:59 08/19/19 18:15 Saline Flush FLUSH 2.5 ml ASDIRECTED PRN Administration Keep Vein Open Vancomycin HCl 1 dose 08/19/19 20:15 Pharmacy To Dose - Vancomycin .XX ASDIRECTED WILTON - Re-Assessments/Exams Free Text/Narrative Re-Assessment/Exam: 08/19/19 18:[address] Figueroa Dixon, will consult for left knee irritation. Patient getting IV vancomycin and Zosyn. 08/19/19 18:[address] Lucas, who agrees to assume care at this point. The hospitalist's documentation supersedes all other documentation on this patient with regard to any conflicts or discrepancies from this point forward. Any emergency conditions have been treated to the ability of the ED prior to admission. 08/19/19 18:51 Dr. Dixon assessed the patient in the ER, agrees that it is probably more consistent with cellulitis. Departure - Departure Time of Disposition: 12:50 Disposition: Admitted As Inpatient 65 Condition: Good Clinical Impression: Sepsis Cellulitis Qualifiers: Site of cellulitis: extremity Site of cellulitis of extremity: lower extremity Laterality: left Qualified Code(s): L03.116 - Cellulitis of left lower limb - Discharge Information *PRESCRIPTION DRUG MONITORING PROGRAM REVIEWED*: Not Applicable *COPY OF PRESCRIPTION DRUG MONITORING REPORT IN PATIENT [place]: Not Applicable Sepsis Event Note (ED) - Evaluation Sepsis Screening Result: Possible Sepsis Risk
[2019-08-19] MEDS ORDERED: Piperacillin/Tazobactam 4.5 GM in Sodium Chloride 0.9% 100 ML IV SCH (18:30)
[2019-08-19 18:36] LABS: BLOOD UREA NITROGEN,BUN 13 mg/dL (7.0-18.0); CARBON DIOXIDE,CO2 24.7 mmol/L (21.0-32.0); GLUCOSE RANDOM 160 mg/dL (74-106)
[2019-08-19] MEDS ORDERED: Acetaminophen 325 MG Tab PO ONE (18:57)
--- NOTE | 2019-08-19 18:57 | CT ---
INDICATION: Headache TECHNIQUE: CT head without contrast. COMPARISON: None FINDINGS: CSF spaces: Within normal limits for age. Brain parenchyma: The morales-white differentiation is normal. No sign of mass, hemorrhage, or midline shift. Skull base and calvarium: The visualized paranasal sinuses and mastoid air cells demonstrate no acute or significant findings. The visualized orbits are grossly unremarkable. No skull fractures. IMPRESSION: Unremarkable noncontrast head CT. Dictated by Kelvin Aguero MD @ 08/19/2019 6:55:45 PM Please note that all CT scans at this facility use dose modulation, iterative reconstruction, and/or weight-based dosing when appropriate to reduce radiation dose to as low as reasonably achievable. Dictated by: Kelvin Aguero MD @ 08/19/2019 18:55:47 (Electronically Signed)
--- NOTE | 2019-08-19 19:05 | PCM.CONS ---
H&P History of Present Illness - General Date of Service: 08/19/19 Admit Problem/Dx: Admission Diagnosis/Problem Admission Diagnosis/Problem Cellulitis Source of Information: Patient, Provider History Limitations: Reports: No Limitations - History of Present Illness Onset of Symptoms: Reports: Gradual Symptom Onset Date: 08/17/19 Duration of Symptoms: Reports: Day(s): Location: Reports: Lower Extremity, Left Improves with: Reports: None Worsens with: Reports: None Associated Symptoms: Reports: Fever/Chills, Headaches - Related Data Allergies/Adverse Reactions: Allergies Allergy/AdvReac Type Severity Reaction Status Date / Time No Known Allergies Allergy Verified 08/19/19 17:53 Home Medications: Home Meds amLODIPine Besylate [Amlodipine Besylate] 10 mg PO DAILY 04/23/19 [History] Aspirin 325 mg PO DAILY #30 tablet 04/29/19 [Rx] Past Medical History HEENT History: Reports: Other (See Below) Other HEENT History: wears glasses Cardiovascular History: Reports: Heart Murmur, Hypertension, Other (See Below) Respiratory History: Reports: None Gastrointestinal History: Reports: Other (See Below) Other Gastrointestinal History: hx hepatitis C with treatment, states is cleared Genitourinary History: Reports: None Musculoskeletal History: Reports: Other (See Below) Other Musculoskeletal History: hx fx thumb & ribs Neurological History: Reports: None Psychiatric History: Reports: None Endocrine/Metabolic History: Reports: None Hematologic History: Reports: None Immunologic History: Reports: None Oncologic (Cancer) History: Reports: None Dermatologic History: Reports: None - Infectious Disease History Infectious Disease History: Reports: None - Past Surgical History Head Surgeries/Procedures: Reports: None HEENT Surgical History: Reports: None Cardiovascular Surgical History: Reports: Other (See Below) Other Cardiovascular Surgeries/Procedures: states has had angiogram in the past x1 artery in '10 (per patient), no stents Respiratory Surgical History: Reports: None GI Surgical History: Reports: None Male Surgical History: Reports: Other (See Below) Other Male Surgeries/Procedures: testicular surgery Endocrine Surgical History: Reports: None Neurological Surgical History: Reports: None Musculoskeletal Surgical History: Reports: Knee Replacement Oncologic Surgical History: Reports: None Dermatological Surgical History: Reports: None Social & Family History - Family History Family Medical History: Noncontributory - Tobacco Use Smoking Status *Q: Current Every Day Smoker Years of Tobacco use: 50 Packs/Tins Daily: 0.9 - Caffeine Use Caffeine Use: Reports: Coffee, Soda, Tea - Recreational Drug Use Recreational Drug Use: No H&P Review of Systems - Review of Systems: Review Of Systems: See Below General: Reports: No Symptoms HEENT: Reports: No Symptoms Pulmonary: Reports: No Symptoms Cardiovascular: Reports: No Symptoms Gastrointestinal: Reports: No Symptoms Genitourinary: Reports: No Symptoms Musculoskeletal: Reports: No Symptoms Skin: Reports: Pruritis, Rash Psychiatric: Reports: No Symptoms Neurological: Reports: Headache Hematologic/Lymphatic: Reports: No Symptoms Immunologic: Reports: No Symptoms Exam - Exam Exam: See Below - Vital Signs Vital Signs: Last Vital Signs Temp 39.2 C H 08/19/19 18:15 Pulse 130 H 08/19/19 17:51 Resp 17 08/19/19 17:51 BP 208/90 H 08/19/19 17:51 Pulse Ox 93 L 08/19/19 17:51 Weight: 86.6 kg - Exam General: Alert, Oriented, Cooperative, Mild Distress HEENT: Conjunctiva Clear, Hearing Intact, Normal Nasal Septum, Pupils Equal, Pupils Reactive, TMs Clear Neck: Supple, Trachea Midline, Carotid Bruit Lungs: Normal Respiratory Effort Cardiovascular: Tachycardia Extremities: Increased Warmth Peripheral Pulses: 2+: Dorsalis Pedis (L) Skin: Warm, Dry, Intact, Rash, Ecchymosis Neuro Extensive - Mental Status: Alert, Oriented x3, Normal Mood/Affect, Normal Cognition, Memory Intact Psychiatric: Alert, Normal Affect, Normal Mood Physical Exam Comments:: NO pain with ROM. No effusion left knee. Erythema and rash with excoriated area from scratching without purulence. - Patient Data Lab Results Last 24 hrs: Laboratory Results - last 24 hr 08/19/19 08/19/19 08/19/19 Range/Units 17:45 17:45 17:45 WBC 18.30 H (4.0-11.0) K/uL RBC 4.48 L (4.50-5.90) M/uL Hgb 15.7 (13.0-17.0) g/dL Hct 45.7 (38.0-50.0) % MCV 102.0 H (80.0-98.0) fL MCH 35.0 H (27.0-32.0) pg MCHC 34.4 (31.0-37.0) g/dL RDW Std Deviation 53.0 (28.0-62.0) fl RDW Coeff of Padma 14 (11.0-15.0) % Plt Count 232 (150-400) K/uL MPV 10.30 (7.40-12.00) fL Neut % (Auto) 82.5 H (48.0-80.0) % Lymph % (Auto) 8.5 L (16.0-40.0) % Stark % (Auto) 8.7 (0.0-15.0) % Eos % (Auto) 0.1 (0.0-7.0) % Baso % (Auto) 0.2 (0.0-1.5) % Neut # (Auto) 15.1 H (1.4-5.7) K/uL Lymph # (Auto) 1.6 (0.6-2.4) K/uL Stark # (Auto) 1.6 H (0.0-0.8) K/uL Eos # (Auto) 0.0 (0.0-0.7) K/uL Baso # (Auto) 0.0 (0.0-0.1) K/uL Nucleated RBC % 0.0 /100WBC Nucleated RBCs # 0 K/uL INR 1.03 APTT 30.2 (18.6-31.3) SEC Lactate (0.20-2.00) mmol/L Carbon Dioxide 24.7 (21.0-32.0) mmol/L BUN 13 (7.0-18.0) mg/dL Creatinine 1.0 (0.8-1.3) mg/dL Est Cr Clr Drug Dosing 73.65 mL/min Estimated GFR (MDRD) > 60.0 ml/min Glucose 160 H (74-106) mg/dL Calcium 9.1 (8.5-10.1) mg/dL Total Bilirubin 0.6 (0.2-1.0) mg/dL AST 29 (15-37) IU/L ALT 41 (14-63) IU/L Alkaline Phosphatase 104 (46-116) U/L C-Reactive Protein 6.00 H (0.00-0.90) mg/dL Total Protein 7.7 (6.4-8.2) g/dL Albumin 3.9 (3.4-5.0) g/dL Globulin 3.8 (2.6-4.0) g/dL Albumin/Globulin Ratio 1.0 (0.9-1.6) 08/19/19 Range/Units 17:48 WBC (4.0-11.0) K/uL RBC (4.50-5.90) M/uL Hgb (13.0-17.0) g/dL Hct (38.0-50.0) % MCV (80.0-98.0) fL MCH (27.0-32.0) pg MCHC (31.0-37.0) g/dL RDW Std Deviation (28.0-62.0) fl RDW Coeff of Padma (11.0-15.0) % Plt Count (150-400) K/uL MPV (7.40-12.00) fL Neut % (Auto) (48.0-80.0) % Lymph % (Auto) (16.0-40.0) % Stark % (Auto) (0.0-15.0) % Eos % (Auto) (0.0-7.0) % Baso % (Auto) (0.0-1.5) % Neut # (Auto) (1.4-5.7) K/uL Lymph # (Auto) (0.6-2.4) K/uL Stark # (Auto) (0.0-0.8) K/uL Eos # (Auto) (0.0-0.7) K/uL Baso # (Auto) (0.0-0.1) K/uL Nucleated RBC % /100WBC Nucleated RBCs # K/uL INR APTT (18.6-31.3) SEC Lactate 1.2 (0.20-2.00) mmol/L Carbon Dioxide (21.0-32.0) mmol/L BUN (7.0-18.0) mg/dL Creatinine (0.8-1.3) mg/dL Est Cr Clr Drug Dosing mL/min Estimated GFR (MDRD) ml/min Glucose (74-106) mg/dL Calcium (8.5-10.1) mg/dL Total Bilirubin (0.2-1.0) mg/dL AST (15-37) IU/L ALT (14-63) IU/L Alkaline Phosphatase (46-116) U/L C-Reactive Protein (0.00-0.90) mg/dL Total Protein (6.4-8.2) g/dL Albumin (3.4-5.0) g/dL Globulin (2.6-4.0) g/dL Albumin/Globulin Ratio (0.9-1.6) Result Diagrams: 08/19/19 17:45 08/19/19 17:45 Sepsis Event Note - Evaluation Sepsis Screening Result: Possible Sepsis Risk - Focused Exam Vital Signs: Vital Signs Temp Temp Pulse Resp BP Pulse Ox 08/19/19 18:15 39.2 C H 08/19/19 17:51 37.6 C 130 H 17 208/90 H 93 L Date Exam was Performed: 08/19/19 Time Exam was Performed: 19:00 Consult PN Assessment/Plan POD#: 0 Procedures: Procedures ASSAY OF PSA TOTAL (07/25/16) BLOOD TYPING SEROLOGIC ABO (04/28/19) BLOOD TYPING SEROLOGIC RH(D) (04/28/19) C-REACTIVE PROTEIN (08/19/18) COMPLETE CBC AUTOMATED (08/19/18) EXCISE LESION TESTIS (08/06/16) GAIT TRAINING THERAPY (04/28/19) GLUCOSE BLOOD TEST (04/28/19) HEMATOCRIT (04/28/19) HEMOGLOBIN (04/28/19) HOT OR COLD PACKS THERAPY (06/08/19) METABOLIC PANEL TOTAL CA (04/28/19) PT EVAL MOD COMPLEX 30 MIN (05/07/19) RBC ANTIBODY SCREEN (04/28/19) ROUTINE VENIPUNCTURE (04/28/19) THERAPEUTIC EXERCISES (06/08/19) TISSUE EXAM BY PATHOLOGIST (08/06/16) TTE W/DOPPLER COMPLETE (02/09/19) URINALYSIS AUTO W/SCOPE (07/25/16) VASOPNEUMATIC DEVICE THERAPY (06/08/19) X-RAY EXAM CHEST 2 VIEWS (04/07/19) X-RAY EXAM HIPS BI 2 VIEWS (02/18/17) X-RAY EXAM KNEE 4 OR MORE (12/28/18) X-RAY EXAM OF KNEE 1 OR 2 (04/28/19) (1) Cellulitis SNOMED Code(s): 575719323 Code(s): L03.90 - CELLULITIS, UNSPECIFIED Current Visit: Yes Qualifiers: Site of cellulitis: extremity Site of cellulitis of extremity: lower extremity Laterality: left Qualified Code(s): L03.116 - Cellulitis of left lower limb Problem List Initiated/Reviewed/Updated: Yes Plan: A: 64 yo male 4 months s/p Left tka with left lower extremity cellulitis, sepsis P: Admit to medicine for sepsis. Will follow if needed.
[2019-08-19 19:13] LABS: CHLORIDE,CL 100 mmol/L (98-107); POTASSIUM,K 3.5 mmol/L (3.5-5.1); SODIUM,NA 137 mmol/L (136-148)
[2019-08-19] MEDS ORDERED: Acetaminophen 325 MG Tab PO STA (19:13)
--- NOTE | 2019-08-19 19:13 | CR ---
INDICATION: Sepsis. TECHNIQUE: Chest 1 view COMPARISON: Chest radiograph 04/07/2019. FINDINGS: New linear opacity in the right lower lung may represent atelectasis or infiltrate. No pleural effusion or pneumothorax. Normal heart size and pulmonary vascularity. IMPRESSION: New linear opacity in the right lower lung may represent atelectasis or infiltrate. Dictated by Trinh Pritchett MD @ Aug 19 2019 7:10PM Signed by Dr. Trinh Pritchett @ Aug 19 2019 7:12PM
[2019-08-19] MEDS ORDERED: Acetaminophen 500 MG Tab ONE (19:17)
[2019-08-19] MEDS ORDERED: Acetaminophen 500 MG Tab PO ONE (19:18)
--- NOTE | 2019-08-19 19:18 | CR ---
Indication: Knee pain. Technique: Left knee 3 views. Comparison: Left knee radiograph 04/28/2019. Findings: No acute fracture or dislocation. The patella is normally aligned. Left total knee arthroplasty with patellar resurfacing. Components appear well seated without radiographic evidence of loosening. Stable small osseous densities or vascular calcifications about the knee. Probable small knee joint effusion. Removal of previously seen skin oleksandr. Soft tissue swelling about the knee. Impression: 1. No acute findings. 2. Intact TKA without evidence of hardware failure. 3. Probable small knee joint effusion. 4. Soft tissue swelling about the knee. Dictated by Trinh Pritchett MD @ Aug 19 2019 7:13PM Signed by Dr. Trinh Pritchett @ Aug 19 2019 7:15PM
[2019-08-19] MEDS: Sodium Chloride 0.9% 1,000 ML IV SCH (21:52)
[2019-08-19] MEDS: Piperacillin/Tazobactam 3.375 GM in Sodium Chloride 0.9% 50 ML IV SCH (21:52)
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
[2019-08-20] MEDS: Heparin Sodium 5,000 Units/ML Vial SUBCUT SCH ×3 (00:21→15:35)
[2019-08-20] MEDS: Acetaminophen 325 MG Tab PO PRN ×2 (01:29→07:50)
[2019-08-20] MEDS: Piperacillin/Tazobactam 3.375 GM in Sodium Chloride 0.9% 50 ML IV SCH ×4 (01:30→20:19)
[2019-08-20 06:35] LABS: BLOOD UREA NITROGEN,BUN 11 mg/dL (7.0-18.0); CARBON DIOXIDE,CO2 26.7 mmol/L (21.0-32.0); CHLORIDE,CL 105 mmol/L (98-107); GLUCOSE RANDOM 110 mg/dL (74-106); POTASSIUM,K 3.9 mmol/L (3.5-5.1); SODIUM,NA 140 mmol/L (136-148)
[2019-08-20] MEDS: Sodium Chloride 0.9% 1,000 ML IV SCH ×2 (07:49→19:28)
[2019-08-20] MEDS: Acetaminophen/Butalbital/Caffeine 325-50-40 MG Tab PO PRN ×2 (10:50→20:19)
--- NOTE | 2019-08-20 11:25 | PCM.PN ---
- General Info Date of Service: 08/20/19 - Review of Systems Systems Review Comment:: reports feeling better, rosalina the erythema of his leg has improved - Patient Data Vitals - Most Recent: Last Vital Signs Temp 38.6 C H 08/20/19 08:00 Pulse 86 08/20/19 08:00 Resp 18 08/20/19 08:00 BP 129/71 08/20/19 08:00 Pulse Ox 93 L 08/20/19 08:00 Weight - Most Recent: 87.362 kg I&O - Last 24 Hours: Intake & Output 08/19/19 08/20/19 08/20/19 22:59 06:59 14:59 Intake Total 1899 Output Total 400 Balance 1499 Lab Results Last 24 Hours: Laboratory Results - last 24 hr 08/19/19 08/19/19 08/19/19 Range/Units 17:45 17:45 17:45 WBC 18.30 H (4.0-11.0) K/uL RBC 4.48 L (4.50-5.90) M/uL Hgb 15.7 (13.0-17.0) g/dL Hct 45.7 (38.0-50.0) % MCV 102.0 H (80.0-98.0) fL MCH 35.0 H (27.0-32.0) pg MCHC 34.4 (31.0-37.0) g/dL RDW Std Deviation 53.0 (28.0-62.0) fl RDW Coeff of Padma 14 (11.0-15.0) % Plt Count 232 (150-400) K/uL MPV 10.30 (7.40-12.00) fL Neut % (Auto) 82.5 H (48.0-80.0) % Lymph % (Auto) 8.5 L (16.0-40.0) % [place] % (Auto) 8.7 (0.0-15.0) % Eos % (Auto) 0.1 (0.0-7.0) % Baso % (Auto) 0.2 (0.0-1.5) % Neut # (Auto) 15.1 H (1.4-5.7) K/uL Lymph # (Auto) 1.6 (0.6-2.4) K/uL [place] # (Auto) 1.6 H (0.0-0.8) K/uL Eos # (Auto) 0.0 (0.0-0.7) K/uL Baso # (Auto) 0.0 (0.0-0.1) K/uL Nucleated RBC % 0.0 /100WBC Nucleated RBCs # 0 K/uL INR 1.03 APTT 30.2 (18.6-31.3) SEC Lactate (0.20-2.00) mmol/L Sodium 137 (136-148) mmol/L Potassium 3.5 (3.5-5.1) mmol/L Chloride 100 (98-107) mmol/L Carbon Dioxide 24.7 (21.0-32.0) mmol/L BUN 13 (7.0-18.0) mg/dL Creatinine 1.0 (0.8-1.3) mg/dL Est Cr Clr Drug Dosing 73.65 mL/min Estimated GFR (MDRD) > 60.0 ml/min Glucose 160 H (74-106) mg/dL Calcium 9.1 (8.5-10.1) mg/dL Total Bilirubin 0.6 (0.2-1.0) mg/dL AST 29 (15-37) IU/L ALT 41 (14-63) IU/L Alkaline Phosphatase 104 (46-116) U/L C-Reactive Protein 6.00 H (0.00-0.90) mg/dL Total Protein 7.7 (6.4-8.2) g/dL Albumin 3.9 (3.4-5.0) g/dL Globulin 3.8 (2.6-4.0) g/dL Albumin/Globulin Ratio 1.0 (0.9-1.6) 08/19/19 08/20/19 08/20/19 Range/Units 17:48 06:09 06:09 WBC 17.27 H (4.0-11.0) K/uL RBC 4.21 L (4.50-5.90) M/uL Hgb 14.4 (13.0-17.0) g/dL Hct 43.6 (38.0-50.0) % MCV 103.6 H (80.0-98.0) fL MCH 34.2 H (27.0-32.0) pg MCHC 33.0 (31.0-37.0) g/dL RDW Std Deviation 54.9 (28.0-62.0) fl RDW Coeff of Padma 14 (11.0-15.0) % Plt Count 199 (150-400) K/uL MPV 9.70 (7.40-12.00) fL Neut % (Auto) 73.7 (48.0-80.0) % Lymph % (Auto) 15.0 L (16.0-40.0) % [place] % (Auto) 10.9 (0.0-15.0) % Eos % (Auto) 0.1 (0.0-7.0) % Baso % (Auto) 0.3 (0.0-1.5) % Neut # (Auto) 12.7 H (1.4-5.7) K/uL Lymph # (Auto) 2.6 H (0.6-2.4) K/uL [place] # (Auto) 1.9 H (0.0-0.8) K/uL Eos # (Auto) 0.0 (0.0-0.7) K/uL Baso # (Auto) 0.1 (0.0-0.1) K/uL Nucleated RBC % 0.0 /100WBC Nucleated RBCs # 0 K/uL INR APTT (18.6-31.3) SEC Lactate 1.2 (0.20-2.00) mmol/L Sodium 140 (136-148) mmol/L Potassium 3.9 (3.5-5.1) mmol/L Chloride 105 (98-107) mmol/L Carbon Dioxide 26.7 (21.0-32.0) mmol/L BUN 11 (7.0-18.0) mg/dL Creatinine 1.0 (0.8-1.3) mg/dL Est Cr Clr Drug Dosing 73.65 mL/min Estimated GFR (MDRD) > 60.0 ml/min Glucose 110 H (74-106) mg/dL Calcium 8.2 L (8.5-10.1) mg/dL Total Bilirubin (0.2-1.0) mg/dL AST (15-37) IU/L ALT (14-63) IU/L Alkaline Phosphatase (46-116) U/L C-Reactive Protein (0.00-0.90) mg/dL Total Protein (6.4-8.2) g/dL Albumin (3.4-5.0) g/dL Globulin (2.6-4.0) g/dL Albumin/Globulin Ratio (0.9-1.6) Med Orders - Current: Current Medications Acetaminophen (Tylenol) 650 mg PO Q6H PRN PRN Reason: Pain Last Admin: 08/20/19 07:50 Dose: 650 mg Acetaminophen/Butalbital/Caffeine (Fioricet 325-50-40 Mg) 1 tab PO Q8H PRN PRN Reason: Headache Last Admin: 08/20/19 10:50 Dose: 1 tab Heparin Sodium (Porcine) (Heparin Sodium) 5,000 units SUBCUT Q8H [facility] Last Admin: 08/20/19 07:51 Dose: 5,000 units Piperacillin Sod/Tazobactam (Sod 3.375 gm/ Sodium Chloride) 50 mls @ 100 mls/ hr IV Q6H [facility] Last Admin: 08/20/19 07:49 Dose: 100 mls/hr Sodium Chloride (Normal Saline) 1,000 mls @ 125 mls/hr IV ASDIRECTED [facility] Last Admin: 08/20/19 07:49 Dose: 125 mls/hr Vancomycin HCl 1.5 gm/ Premix 300 mls @ 300 mls/hr IV Q12H [facility] Last Admin: 08/20/19 08:54 Dose: 300 mls/hr Sodium Chloride (Saline Flush) 10 ml FLUSH ASDIRECTED PRN PRN Reason: Keep Vein Open Last Admin: 08/19/19 18:15 Dose: 10 ml Sodium Chloride (Saline Flush) 2.5 ml FLUSH ASDIRECTED PRN PRN Reason: Keep Vein Open Last Admin: 08/19/19 18:15 Dose: 2.5 ml Vancomycin HCl (Pharmacy To Dose - Vancomycin) 1 dose .XX ASDIRECTED [facility] Discontinued Medications Acetaminophen (Tylenol) 1,000 mg PO NOW ONE Stop: 08/19/19 18:58 Last Admin: 08/19/19 19:13 Dose: Not Given Acetaminophen (Tylenol) 1,000 mg PO NOW STA Stop: 08/19/19 19:14 Last Admin: 08/19/19 20:05 Dose: Not Given Acetaminophen (Tylenol Extra Strength) 1,000 mg PO ONETIME ONE Stop: 08/19/19 19:19 Last Admin: 08/19/19 19:18 Dose: 1,000 mg Acetaminophen (Tylenol Extra Strength) Confirm Administered Dose 500 mg .ROUTE .STK-MED ONE Stop: 08/19/19 19:18 Last Admin: 08/19/19 20:04 Dose: Not Given Sodium Chloride (Normal Saline) 2,000 mls @ 999 mls/hr IV .Bolus ONE Stop: 08/19/19 19:59 Last Admin: 08/19/19 18:13 Dose: 999 mls/hr Piperacillin Sod/Tazobactam (Sod 4.5 gm/ Sodium Chloride) 100 mls @ 200 mls/hr IV Q6H [facility] Last Admin: 08/20/19 00:28 Dose: Not Given Vancomycin HCl 1.25 gm/ Sodium (Chloride) 250 mls @ 167 mls/hr IV ONETIME ONE Stop: 08/19/19 19:59 Last Admin: 08/19/19 19:12 Dose: 167 mls/hr - Exam General: Alert, Oriented Neck: Supple Lungs: Clear to Auscultation, Normal Respiratory Effort Cardiovascular: Regular Rate, Regular Rhythm GI/Abdominal Exam: Normal Bowel Sounds, Soft, Non-Tender Extremities: Non-Tender, No Pedal Edema. No: Joint Swelling Skin: Rash (3-5 cm area of erythema over left lateral knee with escoration, improved since last night) Neurological: No New Focal Deficit Sepsis Event Note - Evaluation Sepsis Screening Result: Sepsis Risk - Focused Exam Vital Signs: Vital Signs Temp Temp Temp Pulse Resp BP Pulse Ox 08/20/19 08:00 38.6 C H 86 18 129/71 93 L 08/20/19 07:50 37.8 C 08/20/19 04:00 38.4 C H 82 18 130/63 92 L 08/20/19 01:29 102.1 C H 08/20/19 00:00 40.2 C H 100 18 158/72 H 90 L Date Exam was Performed: 08/20/19 Time Exam was Performed: 11:17 - Problem List Review Problem List Initiated/Reviewed/Updated: Yes - My Orders Last 24 Hours: My Active Orders 08/19/19 20:00 Piperacillin/Tazobactam [Piperacil-Tazobact] 3.375 gm Sodium Chloride 0.9% [ Normal Saline] 50 ml IV Q6H 08/19/19 20:15 Pharmacy to Dose - Vancomycin 1 dose .XX ASDIRECTED 08/19/19 20:30 Sodium Chloride 0.9% [Normal Saline] 1,000 ml IV ASDIRECTED 08/19/19 23:13 Oxygen Therapy [RC] PRN Up ad Apryl [RC] ASDIRECTED VTE/DVT Education [RC] Q12H Vital Signs [RC] Q4H Resuscitation Status Routine 08/19/19 23:14 Antiembolic Devices [RC] Q12H Sequential Compression Device [OM.PC] Per Unit Routine 08/19/19 23:15 Heparin Sodium 5,000 units SUBCUT Q8H 08/20/19 00:17 Acetaminophen [Tylenol] 650 mg PO Q6H PRN 08/20/19 09:00 VANCOmycin/Water for INJ (PEG) [VANCOmycin 1.5 GM/300 ML Premix] 1.5 gm Premix Bag 1 bag IV Q12H 08/20/19 Breakfast Regular Diet [DIET] - Plan Plan:: 64 yo male admitted for sepsis with cellulitis over left knee. We will continue broad spectrum antibiotics of vancomycin and Zosyn. Blood cultures are pending.
[2019-08-21] MEDS: Piperacillin/Tazobactam 3.375 GM in Sodium Chloride 0.9% 50 ML IV SCH ×2 (01:57→09:03)
[2019-08-21] MEDS: Heparin Sodium 5,000 Units/ML Vial SUBCUT SCH ×2 (06:21)
[2019-08-21 06:46] LABS: BLOOD UREA NITROGEN,BUN 10 mg/dL (7.0-18.0); CHLORIDE,CL 106 mmol/L (98-107); GLUCOSE RANDOM 139 mg/dL (74-106); POTASSIUM,K 3.4 mmol/L (3.5-5.1); SODIUM,NA 139 mmol/L (136-148)
--- NOTE | 2019-08-21 11:35 | PCM.DCSUM1 ---
Discharge Summary - Discharge Data Discharge Date: 08/21/19 Discharge Disposition: Home, Self-Care 01 Condition: Stable - Referral to Home Health Primary Care Physician: PCP None - Patient Summary/Data Hospital Course: 64 yo male admitted for cellulitis over the lateral left knee. He presented with several day history of itchy rash of his left knee and fever. He was noted to have a 3-4cm area of erythema over his left lateral knee with areas or excoriation. The knee joint did not appear to be involved. He has a history left TKA in April [address] Dixon was consulted who recommended antibiotic treatment for cellulitis. He did have a white count of 18,000 and fever of 104. CT head, CXR and left knee x-ray were unremarkable. He was treated with vancomycin and Zosyn with improvement in his erythema, fevers and leukocytosis. Today he is requesting discharge home. He was discharged home on Bactrim DS for five more days. [facility]. - Discharge Plan *PRESCRIPTION DRUG MONITORING PROGRAM REVIEWED*: Not Applicable *COPY OF PRESCRIPTION DRUG MONITORING REPORT IN PATIENT [place]: Not Applicable Prescriptions/Med Rec: Sulfamethoxazole/Trimethoprim [Bactrim Ds Tablet] 1 each PO BID #10 tablet Home Medications: Home Meds amLODIPine Besylate [Amlodipine Besylate] 10 mg PO DAILY 04/23/19 [History] Aspirin 325 mg PO DAILY #30 tablet 04/29/19 [Rx] Sulfamethoxazole/Trimethoprim [Bactrim Ds Tablet] 1 each PO BID #10 tablet 08/20 [Rx] Patient Handouts: Cellulitis, Adult, [id number], Sulfamethoxazole; Trimethoprim, [id number] tablets Referrals: [facility] [Outside] - 09/02/19 9:00 am - Discharge Summary/Plan Comment DC Time >30 min.: No - Patient Data Vitals - Most Recent: Last Vital Signs Temp 37.3 C 08/21/19 08:00 Pulse 74 08/21/19 08:00 Resp 16 08/21/19 08:00 BP 144/74 H 08/21/19 08:00 Pulse Ox 96 08/21/19 08:00 Weight - Most Recent: 87.362 kg I&O - Last 24 hours: Intake & Output 08/20/19 08/21/19 08/21/19 22:59 06:59 14:59 Intake Total 1367 1900 50 Output Total 1100 Balance 1369 800 50 Lab Results - Last 24 hrs: Laboratory Results - last 24 hr 08/21/19 08/21/19 Range/Units 05:40 05:40 WBC 11.95 H (4.0-11.0) K/uL RBC 3.82 L (4.50-5.90) M/uL Hgb 13.1 (13.0-17.0) g/dL Hct 39.1 (38.0-50.0) % MCV 102.4 H (80.0-98.0) fL MCH 34.3 H (27.0-32.0) pg MCHC 33.5 (31.0-37.0) g/dL RDW Std Deviation 53.2 (28.0-62.0) fl RDW Coeff of Padma 14 (11.0-15.0) % Plt Count 193 (150-400) K/uL MPV 10.30 (7.40-12.00) fL Neut % (Auto) 66.4 (48.0-80.0) % Lymph % (Auto) 21.7 (16.0-40.0) % [place] % (Auto) 10.3 (0.0-15.0) % Eos % (Auto) 1.2 (0.0-7.0) % Baso % (Auto) 0.4 (0.0-1.5) % Neut # (Auto) 7.9 H (1.4-5.7) K/uL Lymph # (Auto) 2.6 H (0.6-2.4) K/uL [place] # (Auto) 1.2 H (0.0-0.8) K/uL Eos # (Auto) 0.1 (0.0-0.7) K/uL Baso # (Auto) 0.1 (0.0-0.1) K/uL Nucleated RBC % 0.0 /100WBC Nucleated RBCs # 0 K/uL Sodium 139 (136-148) mmol/L Potassium 3.4 L (3.5-5.1) mmol/L Chloride 106 (98-107) mmol/L Carbon Dioxide 27.0 (21.0-32.0) mmol/L BUN 10 (7.0-18.0) mg/dL Creatinine 0.8 (0.8-1.3) mg/dL Est Cr Clr Drug Dosing 92.06 mL/min Estimated GFR (MDRD) > 60.0 ml/min Glucose 139 H (74-106) mg/dL Calcium 7.8 L (8.5-10.1) mg/dL ISREAL Results - Last 24 hrs: Microbiology 08/19/19 18:11 Aerobic Blood Culture - Preliminary Blood - Venous - Lab Draw NO GROWTH AFTER 1 DAY Anaerobic Blood Culture - Preliminary NO GROWTH AFTER 1 DAY 08/19/19 17:48 Aerobic Blood Culture - Preliminary Blood - Venous NO GROWTH AFTER 1 DAY Anaerobic Blood Culture - Preliminary NO GROWTH AFTER 1 DAY Med Orders - Current: Current Medications Acetaminophen (Tylenol) 650 mg PO Q6H PRN PRN Reason: Pain Last Admin: 08/20/19 07:50 Dose: 650 mg Acetaminophen/Butalbital/Caffeine (Fioricet 325-50-40 Mg) 1 tab PO Q8H PRN PRN Reason: Headache Last Admin: 08/20/19 20:19 Dose: 1 tab Heparin Sodium (Porcine) (Heparin Sodium) 5,000 units SUBCUT Q8H [facility] Last Admin: 08/21/19 06:21 Dose: 5,000 units Piperacillin Sod/Tazobactam (Sod 3.375 gm/ Sodium Chloride) 50 mls @ 100 mls/ hr IV Q6H [facility] Last Admin: 08/21/19 09:03 Dose: 100 mls/hr Sodium Chloride (Normal Saline) 1,000 mls @ 125 mls/hr IV ASDIRECTED [facility] Last Admin: 08/20/19 19:28 Dose: 125 mls/hr Vancomycin HCl 1.5 gm/ Premix 300 mls @ 300 mls/hr IV Q12H [facility] Last Admin: 08/21/19 10:33 Dose: 300 mls/hr Sodium Chloride (Saline Flush) 10 ml FLUSH ASDIRECTED PRN PRN Reason: Keep Vein Open Last Admin: 08/19/19 18:15 Dose: 10 ml Sodium Chloride (Saline Flush) 2.5 ml FLUSH ASDIRECTED PRN PRN Reason: Keep Vein Open Last Admin: 08/19/19 18:15 Dose: 2.5 ml Vancomycin HCl (Pharmacy To Dose - Vancomycin) 1 dose .XX ASDIRECTED [facility] Discontinued Medications Acetaminophen (Tylenol) 1,000 mg PO NOW ONE Stop: 08/19/19 18:58 Last Admin: 08/19/19 19:13 Dose: Not Given Acetaminophen (Tylenol) 1,000 mg PO NOW STA Stop: 08/19/19 19:14 Last Admin: 08/19/19 20:05 Dose: Not Given Acetaminophen (Tylenol Extra Strength) 1,000 mg PO ONETIME ONE Stop: 08/19/19 19:19 Last Admin: 08/19/19 19:18 Dose: 1,000 mg Acetaminophen (Tylenol Extra Strength) Confirm Administered Dose 500 mg .ROUTE .STK-MED ONE Stop: 08/19/19 19:18 Last Admin: 08/19/19 20:04 Dose: Not Given Sodium Chloride (Normal Saline) 2,000 mls @ 999 mls/hr IV .Bolus ONE Stop: 08/19/19 19:59 Last Admin: 08/19/19 18:13 Dose: 999 mls/hr Piperacillin Sod/Tazobactam (Sod 4.5 gm/ Sodium Chloride) 100 mls @ 200 mls/hr IV Q6H [facility] Last Admin: 08/20/19 00:28 Dose: Not Given Vancomycin HCl 1.25 gm/ Sodium (Chloride) 250 mls @ 167 mls/hr IV ONETIME ONE Stop: 08/19/19 19:59 Last Admin: 08/19/19 19:12 Dose: 167 mls/hr
[2019-08-21 11:43] VITALS: BP 147/76; PULSE 72
== END 2019-08-21 12:08 | disposition home or self-care (01) | DRG 872 ==
LOC: MW.ED 17:27 → MW.MS 18:37
PROVIDERS: ADMIT Internal Medicine; ATTEND Internal Medicine
DX: A41.9 Sepsis, unspecified organism (principal); L03.116 Cellulitis of left lower limb; H54.7 Unspecified visual loss; I10 Essential (primary) hypertension; Z86.19 Personal history of other infectious and parasitic diseases; Z96.652 Presence of left artificial knee joint; Z98.61 Coronary angioplasty status; F17.200 Nicotine dependence, unspecified, uncomplicated; Z79.82 Long term (current) use of aspirin; Z79.899 Other long term (current) drug therapy
CPT/HCPCS: 36415; 70450; 71045; 73562; 80053; 83605; 85025; 85610; 85730; 86140; 87040 ×2; J7030; 80048; 93005; 99284; 99285-25; A9270-GY; J1644; J2543; J3370; J7050

== ENCOUNTER 2024-01-01 11:45 | Emergency (ER) | payer OTHER ==
[2024-01-01] MEDS ORDERED: Diphtheria,Pertussis(Acell),Tetanus Vaccine 0.5 ML Syringe IM ONE (12:08)
[2024-01-01] MEDS ORDERED: Proparacaine 0.5% Ophth Soln 15 ML Bottle EYEBOTH STA (12:08)
[2024-01-01 12:33] VITALS: BP 191/103; PULSE 77
[2024-01-01] MEDS ORDERED: Moxifloxacin 0.5% Ophth Soln 3 ML Bottle EYERT STA (13:01)
== END 2024-01-01 14:25 | disposition left against medical advice (07) ==
LOC: MW.ED 11:45
DX: S05.01XA Injury of conjunctiva and corneal abrasion without foreign body, right eye, initial encounter (principal); I10 Essential (primary) hypertension; Z79.82 Long term (current) use of aspirin; Z79.899 Other long term (current) drug therapy
CPT/HCPCS: 99283; J3490

== ENCOUNTER 2024-08-12 14:11 | Emergency (ER) | payer OTHER ==
[2024-08-12 14:38] LABS: BASOPHILS ABSOLUTE AUTO 0.06 K/uL (0.00-0.20); BASOPHILS PERCENT AUTO 0.7 % (0.0-1.0); EOSINOPHILS PERCENT AUTO 1.2 % (0.0-6.0); HEMATOCRIT 45.3 % (42.0-52.0); HEMOGLOBIN 15.6 g/dL (14.0-18.0); IMMATURE GRAN ABSOLUTE AUTO 0.01 K/uL (0.00-0.05); IMMATURE GRAN PERCENT AUTO 0.1 % (0.0-0.4); LYMPHOCYTES ABSOLUTE AUTO 2.58 K/uL (1.00-4.80); LYMPHOCYTES PERCENT AUTO 30.6 % (24.0-44.0); MEAN CORPUSCULAR HEMOGLOBIN 35.1 pg (28.0-32.0); MEAN CORPUSCULAR HGB CONC 34.4 g/dL (32.0-36.0); MEAN PLATELET VOLUME 9.8 fL (9.4-12.4); MONOCYTES ABSOLUTE AUTO 1.11 K/uL (0.00-0.80); MONOCYTES PERCENT AUTO 13.2 % (0.0-8.0); NEUTROPHILS ABSOLUTE AUTO 4.56 K/uL (1.80-7.70); NEUTROPHILS PERCENT AUTO 54.2 % (41.0-71.0); PLATELET COUNT,PLT 247 K/uL (150-400); RED BLOOD CELL COUNT 4.44 M/uL (4.52-5.90); WHITE BLOOD CELL COUNT,WBC 8.42 K/uL (3.9-11.3)
[2024-08-12 14:54] LABS: CALCIUM 8.8 mg/dL (8.5-10.1); CARBON DIOXIDE,CO2 31.9 mmol/L (21.0-32.0); EST CRCL DRUG DOSING (CG) 68.74 mL/min; POTASSIUM,K 3.9 mmol/L (3.5-5.1)
[2024-08-12] MEDS: Acetaminophen 500 MG Tab PO ONE (14:57)
[2024-08-12] MEDS: Metoclopramide 10 MG/2 ML SDV IVPUSH ONE (16:24)
[2024-08-12] MEDS: Iopamidol 755 MG/ML 500 ML Multipack Bottle IVPUSH STA (16:54)
[2024-08-12 16:57] LABS: BILIRUBIN DIRECT 0.1 mg/dL (0.0-0.5); BILIRUBIN INDIRECT 0.4; BILIRUBIN TOTAL 0.5 mg/dL (0.2-1.0); PROTEIN TOTAL,TP 7.9 g/dL (6.4-8.2)
[2024-08-12] MEDS: Clopidogrel 75 MG Tab PO ONE (17:56)
[2024-08-12] MEDS: Aspirin 81 MG Tab.Chew PO ONE (17:56)
[2024-08-12] MEDS: atorvaSTATin 40 MG Tab PO ONE (18:39)
[2024-08-12 21:58] VITALS: BP 158/76; PULSE 71
== END 2024-08-12 22:18 ==
LOC: MW.ED 14:11
DX: I63.231 Cerebral infarction due to unspecified occlusion or stenosis of right carotid arteries (principal); I10 Essential (primary) hypertension; I72.8 Aneurysm of other specified arteries; F17.210 Nicotine dependence, cigarettes, uncomplicated; Z79.899 Other long term (current) drug therapy; Z79.82 Long term (current) use of aspirin; Z88.6 Allergy status to analgesic agent
CPT/HCPCS: 36415; 70450; 70450-26; 70496; 70496-26; 70498; 70498-26; 70551; 70551-26; 80048; 80061; 80076; 85025; 93005; 96374; 99285; 99285-25; A9270-GY; J2765; Q9967